=== PATIENT | female | born 1930 | race American Indian/Alaskan Native ===

== ENCOUNTER 2017-08-12 00:28 | Inpatient (IN) | payer MEDICARE, OTHER ==
[2017-08-12 00:30] VITALS: BMI 32.7
--- NOTE | 2017-08-12 00:45 | EDPD ---
HPI Stroke - General Time Seen by Provider: 08/12/17 00:33 Historian: Patient, Family (grandson), EMS - History of Present Illness Narrative History of Present Illness (Free Text): 08/12/17 00:45 87 year old female, whose past medical history includes hypertension, hyperlipidemia, and diabetes, presents to the emergency department for possible stroke. Acquired information from patient's grandson and EMS. Patient has general weakness and was found slumped over on her wheelchair at home. Family were unsure if patient had low blood sugar, so they gave her orange juice to drink. Acquired by EMS, patient has left upper arm weakness which now improved and is resolving. Patient is currently awake and verbal. Patient is also actively vomiting orange juice. Patient denies any fever, chills, chest pain, shortness of breath, nausea, diarrhea, urinary symptoms, back pain, neck pain, headache, dizziness, or any other complaints. Note patient is wheelchair bound. Onset:: Sudden Context: Home Associated Symptoms: Vomiting, other (Weakness, left arm weakness) rTPA Inclusion/Exclusion - Refusal of Treatment Patient Refused Treatment: No - Inclusion Criteria for Altepase Patient is 18 years or Older: Yes The Clinical Diagnosis of Ischemic Stroke That is Causing a Potentially Disabling Neurological Deficit: No Time of Onset is Well Established to be Less Than 270 Minute Before Treatment Would Begin: Yes Risk/Benefit Discussed With Patient/Family Member Present: Yes - Exclusion Criteria for Altepase Uncontrolled Hypertension at Time of Treatment (Systolic BP above 185 or Diastolic BP above 110 mmHg): No Active Internal Bleeding: No Known Bleeding Diathesis Including but Not Limited to: Platelets Below 100,000/ mm,PTT Above 40 sec After Heparin Use, Current Use of Oral Anitcoagulant With INR Greater Than 1.7 or PT Greater Than 15 secs: No Evidence of an Intracranial Hemorrhage: No Evidence of Major Acute Infarct With Signs Greater Than 1/3 MCA Territory: No Suspicion of Subarachnoid Hemorrhage on Pretreatment Evaluation Even if CT Head Negative For Hemorrhage: No - Warning to TPA With Conditions Following Conditions Weighed Against Anticipated Benefit: No Condition: Rapid Improvement Past Medical History - Provider Review Nursing Documentation Reviewed: Yes - Tetanus Immunization Tetanus Immunization: Unknown - Cardiac Hx Cardiac Arrhythmia: Yes Hx Hypertension: Yes - Pulmonary Hx Respiratory Disorders: (lung bx benign) - Musculoskeletal/Rheumatological Hx Arthritis: Yes (knees shoulders neck) - Psychiatric Hx Depression: No Hx Emotional Abuse: No Hx Physical Abuse: No - Surgical History Hx Appendectomy: Yes (pt was 36 yrs old) - Suicidal Assessment Feels Threatened In Home Enviroment: No Family/Social History - Dr. Kelly Nursing documentation reviewed.: Yes Allergies/Home Meds Allergies/Adverse Reactions: Allergies No Known Allergies Allergy (Verified 08/12/17 01:15) Home Medications: Home Meds Medication Instructions Recorded Confirmed Brinzolamide [Azopt 15 ml] 1 drop OP BID 01/08/13 08/12/17 Enalapril Maleate [Enalapril] 5 mg PO DAILY 01/08/13 08/12/17 Glimepiride 4 mg PO DAILY 01/08/13 08/12/17 Hydrochlorothiazide [Hydrochlor] 25 mg PO DAILY 01/08/13 08/12/17 Latanoprost [Latanoprost 2.5 ml] 1 drop OP HS 01/08/13 08/12/17 Meloxicam 15 mg PO DAILY 01/08/13 08/12/17 Pregabalin [Lyrica] 100 mg PO BID 01/08/13 08/12/17 Simvastatin 20 mg PO DAILY 01/08/13 08/12/17 Tramadol Hydrochloride [Tramadol] 50 mg PO BID 01/08/13 08/12/17 Insulin Human NPH [Humulin N] 0 units SUBCUT BID 08/12/17 08/12/17 Oxybutynin Chloride [Oxybutynin 10 mg PO DAILY 08/12/17 08/12/17 Chloride ER] Pantoprazole Sodium [Protonix] 40 mg PO DAILY 08/12/17 08/12/17 Review of Systems - Physician Review All systems were reviewed & negative as marked: Yes - Review of Systems Constitutional: absent: Fevers, Other (Chills) Respiratory: absent: SOB Cardiovascular: absent: Chest Pain Gastrointestinal: Vomiting. absent: Diarrhea, Nausea Genitourinary Female: absent: Dysuria, Frequency, Hematuria Musculoskeletal: Other (general weakness, upper arm weakness) Neurological: absent: Headache, Dizziness ED Stroke Physical Exam Temperature: Afebrile Blood Pressure: Normal Pulse: Regular Respiratory Rate: Normal Appearance: Positive for: Well-Appearing, Non-Toxic, Comfortable Pain Distress: None Mental Status: Positive for: Alert and Oriented X 3 - Systems Exam Head: Present: Atraumatic, Normocephalic Pupils: Present: PERRL Extroacular Muscles: Present: EOMI Conjunctiva: Present: Normal Ears: Present: NORMAL TM Mouth: Present: Moist Mucous Membranes Neck: Present: Normal Range of Motion Respiratory/Chest: Present: Clear to Auscultation, Good Air Exchange. No: Respiratory Distress, Accessory Muscle Use Cardiovascular: Present: Regular Rate and Rhythm, Normal S1, S2. No: Murmurs Abdomen: Present: Normal Bowel Sounds. No: Tenderness, Distention, Peritoneal Signs Genitourinary/Pelvic Exam: Present: NI. No: C, E Back: Present: GCS, CN, SP Upper Extremity: Present: Normal Inspection, Normal ROM, Neurovascularly Intact. No: Cyanosis, Edema Lower Extremity: Present: Normal Inspection, Neurovascularly Intact. No: Edema Neurologic: Present: GCS=15, CN II-XII Intact, Speech Normal, Motor Func Grossly Intact, Normal Sensory Function Skin: Present: Warm, Dry, Normal Color. No: Rashes Lymphatic: Present: OX3, NI, NC Psychiatric: Present: Alert, Oriented x 3, Normal Insight, Normal Concentration Medical Decision Making ED Course and Treatment: 08/12/17 00:45 Impression: 87 year old female presents for possible stroke associated with active vomiting. Differential Diagnosis included but are not limited to: TIA VS CVA VS Gastritis Plan: -- CT head -- EKG -- Labs -- Chest X-ray -- Aspirin -- Zofran Inj -- Reassess and disposition Progress Notes: EXAM: CT Head Without Intravenous Contrast Dictated and Authenticated by: Cindy Stoddard MD 08/12/2017 12:53 AM IMPRESSION: No CT evidence of acute intracranial abnormality. Chronic changes as above. Acute infarcts/early ischemic changes may not be detectable by this modality; MRI is more sensitive in detecting acute ischemia. 08/12/17 02:12 CXR Impression: As read by me, shows no acute processes EKG shows NSR at 96 BPM with first degree AV block, LAD, and RBBB. Interpreted by me. 08/12/17 03:25 Case had been discussed earlier with the neurologist . Patient not a candidate for TPA given low risk/rapid improvement.ASA had been given earlier. 08/12/17 03:[address] See and agrees with the plan. Accepts patient into his service and Dr. Pichardo on consult. - Lab Interpretations I have reviewed the lab results: Yes - RAD Interpretation Radiology Orders: 08/12/17 00:34 HEAD W/O (CODE STROKE) [CT] Stat CHEST PORTABLE [RAD] Stat - EKG Interpretation Interpreted by ED Physician: Yes Type: 12 lead EKG - Medication Orders Current Medication Orders: Discontinued Medications Ondansetron HCl (Zofran Inj) 4 mg IVP ONCE ONE Stop: 08/12/17 00:37 NIHSS Scale([place]) 2 Time Performed: 00:50 - How Severe is the Stoke Baseline Level of Consciousness: 0=Alert LOC to Questions: 0=Both comments correct LOC to commands: 0=Obeys both correctly Best Gaze: 0=Normal Visual: 0=No visual loss Facial: 0=Normal Motor Arm - Left: 0=No drift Motor Arm - Right: 0=No drift Motor Leg - Left: 0=No drift Motor Leg - Right: 0=No drift Limb Ataxia: 0=Absent Sensory: 0=Normal Best Language: 0=No aphasia Dysarthia: 0=Normal articulation Extinction & Inattention (Neglect): 0=Normal, no object Score: 0 Risk Level: No Stroke Risk - Scribe Statement The provider has reviewed the documentation as recorded by the Morgan Barbosa Provider Scribe Attestation: All medical record entries made by the Scribe were at my direction and personally dictated by me. I have reviewed the chart and agree that the record accurately reflects my personal performance of the history, physical exam, medical decision making, and the department course for this patient. I have also personally directed, reviewed, and agree with the discharge instructions and disposition. NIHSS Scale ([place]) Time Performed: 00:35 - How Severe is the Stoke Baseline Level of Consciousness: 0=Alert LOC to Questions: 0=Both comments correct LOC to commands: 0=Obeys both correctly Best Gaze: 0=Normal Visual: 0=No visual loss Facial: 0=Normal Motor Arm - Left: 1=Drift noted before 10 sec Motor Arm - Right: 1=Drift noted before 10 sec Motor Leg - Left: 0=No drift Motor Leg - Right: 0=No drift Limb Ataxia: 0=Absent Sensory: 0=Normal Best Language: 0=No aphasia Dysarthia: 0=Normal articulation Extinction & Inattention (Neglect): 0=Normal, no object Score: 2 Risk Level: Minor Stroke Risk Disposition/Present on Arrival - Present on Arrival Any Indicators Present on Arrival: No History of DVT/PE: No History of Uncontrolled Diabetes: No Urinary Catheter: No History of Decub. Ulcer: No History Surgical Site Infection Following: None - Disposition Have Diagnosis and Disposition been Completed?: Yes Diagnosis: TIA (transient ischemic attack) Disposition: HOSPITALIZED Disposition Time: 03:39 Patient Plan: Observation Patient Problems: Current Active Problems Problem Status Onset TIA (transient ischemic attack) Acute Condition: STABLE
--- NOTE | 2017-08-12 00:54 | CT ---
EXAM: CT Head Without Intravenous Contrast CLINICAL HISTORY: 87 years old, female; Signs and symptoms; Altered mental status/memory loss; Confusion or disorientation; Additional info: Code stroke TECHNIQUE: Axial computed tomography images of the head/brain without intravenous contrast. All CT scans at this facility use one or more dose reduction techniques, viz.: automated exposure control; ma/kV adjustment per patient size (including targeted exams where dose is matched to indication; i.e. head); or iterative reconstruction technique. COMPARISON: No relevant prior studies available. FINDINGS: Brain: Atrophy. Chronic small vessel ischemic changes. 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 Vascular calcification. No hemorrhage. No edema. Ventricles: No hydrocephalus. Bones: Skull is intact. Hyperostosis interna. Sinuses: No acute sinusitis. Mastoid air cells: No mastoid effusion. IMPRESSION: No CT evidence of acute intracranial abnormality. Chronic changes as above. Acute infarcts/early ischemic changes may not be detectable by this modality; MRI is more sensitive in detecting acute ischemia.
[2017-08-12 01:22] LABS: BASO # 0.04 K/mm3 (0.0-2.0); BASO % 0.3 % (0.0-3.0); EOS # 0.1 (0.0-0.7); EOS % 0.5 % (1.5-5.0); GRAN # 6.03 (1.4-6.5); GRAN % 52.5 % (50.0-68.0); HEMATOCRIT 46.8 % (36.0-48.0); LYMPH # 4.6 (1.2-3.4); LYMPH % 39.9 % (22.0-35.0); MEAN CELL VOLUME 80.6 fl (80.0-105.0); MEAN CORPUSCULAR HEMOGLOBIN 25.8 pg (25.0-35.0); MEAN CORPUSCULAR HGB CONC 32.1 g/dl (31.0-37.0); MEAN PLATELET VOLUME 11.1 fl (7.0-11.0); MONO # 0.8 (0.1-0.6); MONO % 6.8 % (1.0-6.0); RED CELL DISTRIBUTION WIDTH 15.2 % (11.5-14.5); WHITE BLOOD COUNT 11.5 10^3/ul (4.5-11.0)
[2017-08-12 01:26] LABS: ALB/GLOB RATIO 1.3 (1.1-1.8); BILIRUBIN,TOTAL 1.6 mg/dL (0.2-1.3); CALCIUM 9.4 mg/dL (8.4-10.5); TOTAL PROTEIN 7.6 g/dL (5.8-8.3)
[2017-08-12 01:37] LABS: TROPONIN I 0.05 ng/mL
[2017-08-12 01:44] LABS: INR 1.06 (0.93-1.08)
--- NOTE | 2017-08-12 11:27 | RAD ---
HISTORY: cva COMPARISON: 03/28/2014 FINDINGS: LUNGS: No active pulmonary disease. PLEURA: No significant pleural effusion identified, no pneumothorax apparent. Left costophrenic angle is excluded from this film. CARDIOVASCULAR: Normal heart size. Surgical clips adjacent to right hilum. OSSEOUS STRUCTURES: No significant abnormalities. VISUALIZED UPPER ABDOMEN: Normal. OTHER FINDINGS: None. IMPRESSION: No active disease.
--- NOTE | 2017-08-12 13:58 | CON ---
CHIEF COMPLAINT: Generalized weakness. HISTORY OF PRESENT ILLNESS: An 87-year-old woman with history of hypertension, hyperlipidemia and diabetes, not on aspirin, who came to the hospital with generalized weakness, found slumped over on the wheelchair after being carried up with her son and her nephew [facility]. The son was unsure if she had low blood sugars, they gave orange juice to drink. When she came, the EMS noted some left upper arm weakness, which has improved and resolved. TPA was not given due to resolving left arm weakness. Currently, she is moving all extremities. No pronator drift seen. She does have evidence of diabetic peripheral neuropathy on the examination and chronic venous stasis changes on the lower extremities. REVIEW OF SYSTEMS: A 14-point review of systems as per the HPI. FAMILY HISTORY: Noncontributory. SOCIAL HISTORY: No illicit drug use, smoking, or EtOH abuse. ALLERGIES: NO KNOWN DRUG ALLERGIES. MEDICATION: Reviewed by nurses per reconciliation sheet. PHYSICAL EXAMINATION: VITAL SIGNS: Temperature is 97.8, pulse rate of 92, blood pressure 124/71, respiratory rate of 16. GENERAL: The patient is sitting up in bed, in no acute distress. HEENT: Head is atraumatic and normocephalic. PERRLA. Extraocular muscles intact. NECK: Supple. No JVD. No adenopathy noted. LUNGS: Clear to auscultation. No adventitious sounds. HEART: S1 and S2, normal rate and rhythm. No murmurs, rubs, or gallops. ABDOMEN: Soft, nontender, nondistended. Bowel sounds are present. EXTREMITIES: No clubbing. No cyanosis. Peripheral pulses 2+ felt bilaterally. NEUROLOGIC: The patient is alert and oriented to person, place, month and year. Speech is fluent without any errors. Cranial nerves II through XII intact. Motor exam: Moves all extremities equally. Toes downgoing bilaterally. Sensory exam: Diffuse light touch to pinprick up to the calves bilaterally, decreased vibration at the toes. DTRs are 2+ throughout, 1 at the ankles and knees. Coordination: Zajgun-sx-laac intact. Gait is deferred for now. LABORATORY DATA: Sodium is 139, potassium 4, chloride 100, carbon dioxide 26, BUN of 30, creatinine 1.1, random glucose of 268. ASSESSMENT: This is an 87-year-old woman with history of hypertension, hyperlipidemia, type 2 diabetes mellitus, who was brought to the hospital, noticed to have generalized weakness, found slumped on the wheelchair after being carried up the flight of stairs after [facility] to her apartment, and EMS noted transient left upper arm weakness but currently which is not present at this time. Neuro exam is currently nonfocal. She does have features of diabetic peripheral neuropathy on the examination. At this time, her transient left-sided weakness and generalized weakness could be secondary to underlying transient ischemic event given her risk factors. RECOMMENDATIONS: At this time recommend; 1. Aspirin 81 mg daily. 2. Simvastatin 20 mg p.o. daily for dyslipidemia. 3. Avoid overuse of sedative meds such as tramadol and meloxicam that she is on. 4. Continue on Lyrica 100 mg p.o. b.i.d. for neuropathic pain given her diabetic neuropathy. 5. Keep blood sugars between 140 to 180. 6. Get an MRI of the brain given her risk factors to evaluate for an acute stroke and continue PT evaluation. Once again, thank you for this consult. Jose Pichardo MD
--- NOTE | 2017-08-12 14:44 | CP.PCM.HP ---
History of Present Illness - History of Present Illness History of Present Illness: 87 yo female had syncopal episode with some weakness of the left arm which resolved, glucose level elevated, no response from OJ given in field,, no witnessed SZ, c/o SOB occasionally, CARPENTER, mild non-radiating chest discomfort, slight increased edema of legs past few days Present on Admission - Present on Admission Any Indicators Present on Admission: No Review of Systems - Constitutional Constitutional: Malaise, Weakness - Cardiovascular Cardiovascular: Chest Pain with Activity, Dyspnea, Pedal Edema, Syncope - Respiratory Respiratory: Dyspnea on Exertion - Musculoskeletal Musculoskeletal: Abnormal Gait, Arthralgias, Limited Range of Motion, Muscle Weakness, Stiffness, Tingling - Neurological Neurological: Abnormal Gait, Numbness, Radicular Pain, Syncope, Weakness Past Patient History - Tetanus Immunizations Tetanus Immunization: Unknown - Past Social History Smoking Status: Never Smoked - CARDIAC Hx Cardiac Disorders: Yes Hx Hypercholesterolemia: Yes Hx Hypertension: Yes - PULMONARY Hx Respiratory Disorders: No - NEUROLOGICAL Hx Neurological Disorder: No - HEENT Hx HEENT Problems: Yes Hx Cataracts: Yes (left eye) Hx Glaucoma: Yes (right eye) - RENAL Hx Chronic Kidney Disease: No - ENDOCRINE/METABOLIC Hx Endocrine Disorders: Yes Hx Diabetes Mellitus Type 1: Yes Hx Diabetes Mellitus Type 2: Yes - HEMATOLOGICAL/ONCOLOGICAL Hx Blood Disorders: No - INTEGUMENTARY Hx Dermatological Problems: No - MUSCULOSKELETAL/RHEUMATOLOGICAL Hx Musculoskeletal Disorders: Yes Hx Arthritis: Yes Hx Falls: No - GASTROINTESTINAL Hx Gastrointestinal Disorders: No - GENITOURINARY/GYNECOLOGICAL Hx Genitourinary Disorders: No - PSYCHIATRIC Hx Psychophysiologic Disorder: No Hx Substance Use: No - SURGICAL HISTORY Hx Appendectomy: Yes (pt was 36 yrs old) - ANESTHESIA Hx Anesthesia: No Meds Allergies/Adverse Reactions: Allergies Allergy/AdvReac Type Severity Reaction Status Date / Time No Known Allergies Allergy Verified 08/12/17 01:15 Physical Exam - Constitutional Appears: No Acute Distress - Head Exam Head Exam: ATRAUMATIC, NORMOCEPHALIC - Eye Exam Eye Exam: EOMI, Normal appearance - ENT Exam ENT Exam: Mucous Membranes Moist - Neck Exam Neck exam: Positive for: Normal Inspection - Respiratory Exam Respiratory Exam: Rales - Cardiovascular Exam Cardiovascular Exam: REGULAR RHYTHM, Systolic Murmur - GI/Abdominal Exam GI & Abdominal Exam: Normal Bowel Sounds, Soft - Extremities Exam Extremities exam: Positive for: pedal edema - Neurological Exam Neurological exam: Abnormal Gait, Alert, Oriented x3 - Skin Skin Exam: Cyanosis, Dry Results - Vital Signs Recent Vital Signs: Last Vital Signs Temp 97.8 F 08/12/17 12:19 Pulse 92 H 08/12/17 12:19 Resp 16 08/12/17 12:19 BP 124/71 08/12/17 12:19 Pulse Ox 98 08/12/17 01:47 - Labs Result Diagrams: 08/12/17 01:00 08/12/17 01:00 Labs: Laboratory Results - last 24 hr 08/12/17 08/12/17 10:19 12:39 POC Glucose (mg/dL) 206 H 313 H Assessment & Plan (1) TIA (transient ischemic attack) Status: Acute (2) Cyanosis Status: Acute (3) Type II diabetes mellitus Status: Acute (4) Hypertension Status: Acute (5) Degenerative joint disease involving multiple joints Status: Acute (6) Immobility Status: Acute - Assessment and Plan (Free Text) Plan: neuro consult appreciated, cardio consult, repeat troponin, ABG, check d-dimer, venous doppler LE's, carotid US - Date & Time Date: 08/12/17 Time: 14:00
[2017-08-12 16:27] LABS: TROPONIN I 2.18 ng/mL
[2017-08-12] MEDS: Insulin Reg-LOW-Coverage SC SCH ×2 (16:30→21:46)
[2017-08-12 17:31] LABS: ARTERIAL BLOOD GAS HCO3 29.7 mmol/L (21-28); ARTERIAL BLOOD GAS O2 CAPACITY 17.3 mL/dl (16-24); ARTERIAL BLOOD GAS O2 CONTENT 17.1 ML/dl (15-23); CARBOXYHEMOGLOBIN 1.4 % (0.5-1.5); HHB 0.9 % (0-5); METHEMOGLOBIN 0.7 % (0.0-3.0)
[2017-08-12] MEDS: Clotrimazole/Betamethasone Cream(15 gm) TOP SCH (17:59)
[2017-08-12] MEDS: Enoxaparin 100 mg Syringe SC SCH (20:39)
[2017-08-13] MEDS: Pantoprazole 40 mg EC Tab PO SCH (05:15)
--- NOTE | 2017-08-13 08:31 | CARD ---
APPROVED REPORT EKG Measurement Heart [id number] ME 226P [id number] <Conclusion> Sinus rhythm with 1st degree AV block with premature atrial complexes ASMI, old Left axis deviation Right bundle branch block, new since ECG 03/28/14
[2017-08-13] MEDS: Insulin Reg-LOW-Coverage SC SCH ×4 (09:06→21:44)
[2017-08-13] MEDS: Enoxaparin 100 mg Syringe SC SCH (09:17)
[2017-08-13] MEDS: Clotrimazole/Betamethasone Cream(15 gm) TOP SCH ×2 (11:31→17:45)
--- NOTE | 2017-08-13 12:42 | CP.PCM.PN ---
Subjective - Date & Time of Evaluation Date of Evaluation: 08/13/17 Time of Evaluation: 12:25 - Subjective Subjective: feels better, no cp, no SOB Objective - Vital Signs/Intake and Output Vital Signs (last 24 hours): Temp Pulse Resp BP Pulse Ox 99.2 F 68 20 138/73 99 08/13/17 06:00 08/13/17 11:28 08/13/17 06:00 08/13/17 11:28 08/13/17 06:00 Intake and Output: 08/13/17 08/13/17 06:59 18:59 Intake Total 0 Output Total 400 Balance -400 - Medications Medications: Current Medications Aspirin (Aspirin Chewable) 81 mg PO DAILY [facility] Last Admin: 08/13/17 11:30 Dose: 81 mg Betamethasone/Clotrimazole (Lotrisone) 1 gm TOP BID [facility] Last Admin: 08/13/17 11:31 Dose: 1 applic Clopidogrel Bisulfate (Plavix) 75 mg PO ONCE ONE Stop: 08/14/17 10:01 Insulin Human Regular (Humulin R Low) 0 units SC ACHS [facility] PRN Reason: Protocol Last Admin: 08/13/17 11:30 Dose: 2 units Lisinopril (Zestril) 5 mg PO DAILY [facility] Last Admin: 08/13/17 11:28 Dose: 5 mg Metoprolol Tartrate (Lopressor) 25 mg PO BRKDIN [facility] Last Admin: 08/13/17 09:09 Dose: 25 mg Pantoprazole Sodium (Protonix Ec Tab) 40 mg PO 0600 [facility] Last Admin: 08/13/17 05:15 Dose: 40 mg Tramadol HCl (Ultram) 50 mg PO TID PRN PRN Reason: Pain, moderate (4-7) - Labs Labs: PT 11.5 Seconds (9.9-11.8) 08/12/17 01:00 INR 1.06 (0.93-1.08) 08/12/17 01:00 APTT 27.0 Seconds (23.7-30.8) 08/12/17 01:00 - Respiratory Exam Respiratory Exam: Clear to Ausculation Bilateral, NORMAL BREATHING PATTERN - Cardiovascular Exam Cardiovascular Exam: REGULAR RHYTHM - GI/Abdominal Exam GI & Abdominal Exam: Soft, Normal Bowel Sounds - Back Exam Back Exam: NORMAL INSPECTION - Neurological Exam Neurological Exam: Alert, Awake - Skin Skin Exam: Dry, Warm Assessment and Plan (1) TIA (transient ischemic attack) Status: Acute (2) Cyanosis Status: Acute (3) Type II diabetes mellitus Status: Acute (4) Hypertension Status: Acute (5) Degenerative joint disease involving multiple joints Status: Acute (6) Immobility Status: Acute (7) NSTEMI (non-ST elevated myocardial infarction) Status: Acute - Assessment and Plan (Free Text) Plan: cardiology eval, ?cath
--- NOTE | 2017-08-13 14:30 | CON ---
DATE: 08/13/2017 CARDIOLOGY CONSULTATION HISTORY OF PRESENT ILLNESS: The patient is an 87-year-old woman who presents with generalized weakness. The patient's past medical history includes hypertension, diabetes mellitus, and hypercholesterolemia. No previous heart disease is noted. There is no history of chest pain. SOCIAL HISTORY: The patient does not smoke. REVIEW OF SYSTEMS: A 14-point review of systems was reviewed in detail. The patient is comfortable without shortness breath or chest pain. PHYSICAL EXAMINATION: VITAL SIGNS: Stable, heart rate is in normal sinus rhythm in the 80s. NECK: Negative JVD. LUNGS: Without rales. HEART: S1, S2. EXTREMITIES: Without edema. EKG shows normal sinus rhythm with a right bundle-branch block. Troponins were 2.18. Creatinine is normal. IMPRESSION: 1. Pvo-AN-couussstd myocardial infarction. 2. High probability for coronary artery disease. 3. Diabetes mellitus. 4. Hypertension. 5. Hypercholesterolemia. Given these findings, the patient has been started on Lovenox, aspirin, beta-blockers. We will load with Plavix today. I have discussed with the patient about the need for cardiac catheterization. We will schedule the case for cardiac catheterization with Dr. Cloud in the morning. Adam Abdi MD
[2017-08-14] MEDS: Pantoprazole 40 mg EC Tab PO SCH (06:06)
[2017-08-14 07:49] LABS: BASO # 0.03 K/mm3 (0.0-2.0); BASO % 0.3 % (0.0-3.0); EOS % 0.4 % (1.5-5.0); GRAN # 5.93 (1.4-6.5); GRAN % 66.3 % (50.0-68.0); LYMPH # 1.8 (1.2-3.4); LYMPH % 19.7 % (22.0-35.0); MEAN CELL VOLUME 79.6 fl (80.0-105.0); MEAN CORPUSCULAR HEMOGLOBIN 25.7 pg (25.0-35.0); MEAN CORPUSCULAR HGB CONC 32.3 g/dl (31.0-37.0); MEAN PLATELET VOLUME 10.4 fl (7.0-11.0); MONO # 1.2 (0.1-0.6); MONO % 13.3 % (1.0-6.0)
[2017-08-14 08:04] LABS: BLOOD UREA NITROGEN 20 mg/dL (7-21); CALCIUM 9.4 mg/dL (8.4-10.5); CARBON DIOXIDE 31 mmol/L (21-33); CHLORIDE 103 mmol/L (98-107); GFR AFRICAN-AMERICAN > 60; GLUCOSE,RANDOM 149 mg/dL (70-110); POTASSIUM 4.1 mmol/L (3.6-5.0); SODIUM 142 mmol/L (132-148)
[2017-08-14] MEDS: Insulin Reg-LOW-Coverage SC SCH ×5 (08:07→21:15)
[2017-08-14 08:25] LABS: TROPONIN I 0.37 ng/mL
--- NOTE | 2017-08-14 09:16 | US ---
HISTORY: Leg pain and swelling. Evaluate for DVT PHYSICIAN(S): Adam Kurtz MD. TECHNIQUE: Duplex sonography and color-flow Doppler with graded compression were used to evaluate the deep venous systems of both lower extremities. The exam is limited by body habitus and edema. The tibial veins are not well seen FINDINGS: The visualized deep venous systems of both lower extremities are sonographically normal and compressible. Normal wave forms and augmentation are seen. There is no sonographic evidence for deep venous thrombosis in the visualized segments of both lower extremities. IMPRESSION: No sonographic evidence for deep venous thrombosis in the visualized segments of both lower extremities.
--- NOTE | 2017-08-14 09:39 | CP.PCM.PN ---
Subjective - Date & Time of Evaluation Date of Evaluation: 08/14/17 Time of Evaluation: 09:30 - Subjective Subjective: NAD, no cp, no sob Objective - Vital Signs/Intake and Output Vital Signs (last 24 hours): Temp Pulse Resp BP Pulse Ox 98.8 F 73 20 146/75 95 08/14/17 05:38 08/14/17 09:25 08/14/17 05:38 08/14/17 09:25 08/14/17 05:38 Intake and Output: 08/14/17 08/14/17 06:59 18:59 Intake Total 0 Output Total 0 Balance 0 - Medications Medications: Current Medications Acetaminophen (Tylenol 325mg Tab) 650 mg PO Q4H PRN PRN Reason: Fever >100.4 F Last Admin: 08/14/17 08:20 Dose: 650 mg Aspirin (Aspirin Chewable) 81 mg PO DAILY [facility] Last Admin: 08/14/17 09:25 Dose: 81 mg Betamethasone/Clotrimazole (Lotrisone) 1 gm TOP BID [facility] Last Admin: 08/13/17 17:45 Dose: 1 applic Clopidogrel Bisulfate (Plavix) 75 mg PO ONCE ONE Stop: 08/14/17 10:01 Last Admin: 08/14/17 09:25 Dose: 75 mg Insulin Human Regular (Humulin R Low) 0 units SC ACHS [facility] PRN Reason: Protocol Last Admin: 08/14/17 08:07 Dose: Not Given Lisinopril (Zestril) 5 mg PO DAILY [facility] Last Admin: 08/14/17 09:25 Dose: 5 mg Metoprolol Tartrate (Lopressor) 25 mg PO BRKDIN [facility] Last Admin: 08/14/17 08:20 Dose: 25 mg Pantoprazole Sodium (Protonix Ec Tab) 40 mg PO 0600 [facility] Last Admin: 08/14/17 06:06 Dose: 40 mg Tramadol HCl (Ultram) 50 mg PO TID PRN PRN Reason: Pain, moderate (4-7) - Labs Labs: 08/14/17 07:30 08/14/17 07:30 PT 11.5 Seconds (9.9-11.8) 08/12/17 01:00 INR 1.06 (0.93-1.08) 08/12/17 01:00 APTT 27.0 Seconds (23.7-30.8) 08/12/17 01:00 - Respiratory Exam Respiratory Exam: Clear to Ausculation Bilateral, NORMAL BREATHING PATTERN - Cardiovascular Exam Cardiovascular Exam: REGULAR RHYTHM - GI/Abdominal Exam GI & Abdominal Exam: Soft, Normal Bowel Sounds - Neurological Exam Neurological Exam: Alert, Awake - Skin Skin Exam: Dry, Warm Assessment and Plan (1) TIA (transient ischemic attack) Status: Acute (2) Cyanosis Status: Acute (3) Type II diabetes mellitus Status: Acute (4) Hypertension Status: Acute (5) Degenerative joint disease involving multiple joints Status: Acute (6) Immobility Status: Acute (7) NSTEMI (non-ST elevated myocardial infarction) Status: Acute - Assessment and Plan (Free Text) Plan: for cath, cardio and neuro f/u, pt unable to do MRI brain due to claustrophobia
[2017-08-14] MEDS: Clotrimazole/Betamethasone Cream(15 gm) TOP SCH ×2 (10:00→17:59)
--- NOTE | 2017-08-14 10:22 | CP.PCM.PN ---
<Kristin Rojo - Last Filed: 08/14/17 13:09> Subjective - Date & Time of Evaluation Date of Evaluation: 08/14/17 Time of Evaluation: 10:16 - Subjective Subjective: Neurology Progress Note for Yamila Jay PGY2 Patient seen and examined at bedside. As per nursing there were no acute overnight events. Patient is scheduled for cardiac cath this AM. She reports having some shoulder pain that is relieved with Tylenol. She denies any weakness , vision changes, slurred speech, dizziness, headache, CP, SOB, n/v/d, numbness or tingling. Objective - Vital Signs/Intake and Output Vital Signs (last 24 hours): Temp Pulse Resp BP Pulse Ox 98.8 F 73 20 146/75 95 08/14/17 05:38 08/14/17 09:25 08/14/17 05:38 08/14/17 09:25 08/14/17 05:38 Intake and Output: 08/14/17 08/14/17 06:59 18:59 Intake Total 0 Output Total 0 Balance 0 - Medications Medications: Current Medications Acetaminophen (Tylenol 325mg Tab) 650 mg PO Q4H PRN PRN Reason: Fever >100.4 F Last Admin: 08/14/17 08:20 Dose: 650 mg Aspirin (Aspirin Chewable) 81 mg PO DAILY [facility] Last Admin: 08/14/17 09:25 Dose: 81 mg Betamethasone/Clotrimazole (Lotrisone) 1 gm TOP BID [facility] Last Admin: 08/13/17 17:45 Dose: 1 applic Insulin Human Regular (Humulin R Low) 0 units SC ACHS [facility] PRN Reason: Protocol Last Admin: 08/14/17 08:07 Dose: Not Given Lisinopril (Zestril) 5 mg PO DAILY [facility] Last Admin: 08/14/17 09:25 Dose: 5 mg Metoprolol Tartrate (Lopressor) 25 mg PO BRKDIN [facility] Last Admin: 08/14/17 08:20 Dose: 25 mg Pantoprazole Sodium (Protonix Ec Tab) 40 mg PO 0600 [facility] Last Admin: 08/14/17 06:06 Dose: 40 mg Tramadol HCl (Ultram) 50 mg PO TID PRN PRN Reason: Pain, moderate (4-7) - Labs Labs: 08/14/17 07:30 08/14/17 07:30 PT 11.5 Seconds (9.9-11.8) 08/12/17 01:00 INR 1.06 (0.93-1.08) 08/12/17 01:00 APTT 27.0 Seconds (23.7-30.8) 08/12/17 01:00 - Constitutional Appears: No Acute Distress - Head Exam Head Exam: ATRAUMATIC, NORMAL INSPECTION, NORMOCEPHALIC - Eye Exam Eye Exam: Normal appearance, PERRL Pupil Exam: NORMAL ACCOMODATION, PERRL - ENT Exam ENT Exam: Mucous Membranes Moist - Neck Exam Neck Exam: Full ROM - Respiratory Exam Respiratory Exam: Clear to Ausculation Bilateral, NORMAL BREATHING PATTERN. absent: Rales, Rhonchi, Wheezes - Cardiovascular Exam Cardiovascular Exam: REGULAR RHYTHM, +S1, +S2. absent: Gallop, Rubs, Murmur - GI/Abdominal Exam GI & Abdominal Exam: Soft, Normal Bowel Sounds. absent: Rigid, Tenderness, Mass , Rebound - Extremities Exam Extremities Exam: Normal Inspection. absent: Calf Tenderness, Pedal Edema - Neurological Exam Neurological Exam: Alert, Awake, CN II-XII Intact, Oriented x3 - Psychiatric Exam Psychiatric exam: Normal Affect, Normal Mood - Skin Skin Exam: Dry, Intact, Warm Additional comments: discoloration of shins bilaterally Assessment and Plan - Assessment and Plan (Free Text) Assessment: This is an 87Y F with PMH DM, HTN, HLD who was admitted for generalized weakness. EMS noted L arm weakness at the time. Upon examination she does not have any focal neurological deficits. Head CT did not show any acute abnormalities. Due to patient's risk factors, weakness could be secondary to TIA. Patient was also noted to have NSTEMI with elevated troponin. She is scheduled for cardiac cath today. Plan: - Continue ASA and Plavix - Carotid dopplers ordered - Continue Lyrica for diabetic nephropathy - Continue Physical Therapy - Maintain euglycemia - Avoid overuse of sedative medications (Tramadol and Meloxicam) - Follow up cardiology work up Case seen, discussed and reviewed with attending, Dr. Kylee Rojo PGY2 <Jose Pichardo - Last Filed: 08/14/17 13:15> Objective - Vital Signs/Intake and Output Vital Signs (last 24 hours): Temp Pulse Resp BP Pulse Ox 98.8 F 104 H 20 146/75 95 08/14/17 05:38 08/14/17 10:00 08/14/17 05:38 08/14/17 09:25 08/14/17 05:38 Intake and Output: 08/14/17 08/14/17 06:59 18:59 Intake Total 0 Output Total 0 Balance 0 - Medications Medications: Current Medications Acetaminophen (Tylenol 325mg Tab) 650 mg PO Q4H PRN PRN Reason: Fever >100.4 F Last Admin: 08/14/17 08:20 Dose: 650 mg Aspirin (Aspirin Chewable) 81 mg PO DAILY [facility] Last Admin: 08/14/17 09:25 Dose: 81 mg Betamethasone/Clotrimazole (Lotrisone) 1 gm TOP BID [facility] Last Admin: 08/13/17 17:45 Dose: 1 applic Insulin Human Regular (Humulin R Low) 0 units SC ACHS [facility] PRN Reason: Protocol Last Admin: 08/14/17 08:07 Dose: Not Given Lisinopril (Zestril) 5 mg PO DAILY [facility] Last Admin: 08/14/17 09:25 Dose: 5 mg Metoprolol Tartrate (Lopressor) 25 mg PO BRKDIN [facility] Last Admin: 08/14/17 08:20 Dose: 25 mg Pantoprazole Sodium (Protonix Ec Tab) 40 mg PO 0600 [facility] Last Admin: 08/14/17 06:06 Dose: 40 mg Tramadol HCl (Ultram) 50 mg PO TID PRN PRN Reason: Pain, moderate (4-7) - Labs Labs: 08/14/17 07:30 08/14/17 07:30 PT 11.5 Seconds (9.9-11.8) 08/12/17 01:00 INR 1.06 (0.93-1.08) 08/12/17 01:00 APTT 27.0 Seconds (23.7-30.8) 08/12/17 01:00 Attending/Attestation - Attestation I have personally seen and examined this patient.: Yes I have fully participated in the care of the patient.: Yes I have reviewed all pertinent clinical information, including history, physical exam and plan: Yes
--- NOTE | 2017-08-14 10:59 | US ---
PROCEDURE: Bilateral carotid artery duplex ultrasound HISTORY: Carotid stenosis TIA PHYSICIAN(S): Adam Kurtz MD. TECHNIQUE: Duplex sonography and color-flow Doppler were used to evaluate the carotid bifurcations and limited segments of the vertebral arteries bilaterally. FINDINGS: There is mild smooth echogenic plaque noted at the carotid bifurcations bilaterally. The peak systolic velocity in the proximal right internal carotid artery is 70 cm/sec. This corresponds to a 20 to 39% proximal right ICA stenosis. Normal systolic velocities are noted in the proximal right external carotid artery. There is antegrade flow in the right vertebral artery. The peak systolic velocity in the proximal left internal carotid artery is 68 cm/sec. This corresponds to a 20 to 39% proximal left ICA stenosis. Normal systolic velocities are noted in the proximal left external carotid artery. There is antegrade flow in the left vertebral artery. IMPRESSION: 1. Bilateral 20-39% proximal ICA stenoses. 2. Antegrade flow in both vertebral arteries.
[2017-08-14] MEDS ORDERED: Lidocaine 2% Inj (20ml) ONE (13:57)
[2017-08-14] MEDS ORDERED: Midazolam 2 MG/2 ML VIAL ONE (13:58)
[2017-08-14] MEDS ORDERED: Iodixanol 320 MG/ML 200 ML BOTTLE IV ONE (13:58)
[2017-08-14] MEDS ORDERED: Iohexol 350mgl/ml 50 ML ONE (13:58)
[2017-08-14] MEDS ORDERED: Eptifibatide 20 mg/10mL Inj IVP ONE ×2 (14:54→14:55)
[2017-08-14] MEDS ORDERED: Sodium Chloride 0.9% 1,000 ML IV SCH (16:15)
--- NOTE | 2017-08-14 19:39 | CP.PCM.PN ---
Subjective - Date & Time of Evaluation Date of Evaluation: 08/14/17 Time of Evaluation: 19:38 - Subjective Subjective: S:Patient was seen by bedside. Requests stool softner. No other complaints. Medical record was reviewed. O: Last Vital Signs 3 Temp 98.3 F 08/14/17 21:45 Pulse 56 L 08/14/17 22:00 Resp 18 08/14/17 21:45 BP 124/75 08/14/17 21:45 Pulse Ox 95 08/14/17 05:38 Awake, alert,not in distress. LUNGS:Normal breathing pattern. ABD:No distension. A:Constipation. P: Stool softner colace as ordered. Objective - Vital Signs/Intake and Output Vital Signs (last 24 hours): Temp Pulse Resp BP Pulse Ox 97.6 F 61 18 106/56 L 95 08/14/17 18:45 08/14/17 18:45 08/14/17 18:45 08/14/17 18:45 08/14/17 05:38 - Medications Medications: Current Medications Acetaminophen (Tylenol 325mg Tab) 650 mg PO Q4H PRN PRN Reason: Fever >100.4 F Last Admin: 08/14/17 08:20 Dose: 650 mg Aspirin (Aspirin Chewable) 81 mg PO DAILY [facility] Last Admin: 08/14/17 09:25 Dose: 81 mg Atorvastatin Calcium (Lipitor) 20 mg PO DIN [facility] Last Admin: 08/14/17 17:59 Dose: 20 mg Betamethasone/Clotrimazole (Lotrisone) 1 gm TOP BID [facility] Last Admin: 08/14/17 17:59 Dose: 1 applic Sodium Chloride (Sodium Chloride 0.9%) 1,000 mls @ 100 mls/hr IV .Q10H [facility] Stop: 08/14/17 21:00 Last Admin: 08/14/17 18:29 Dose: 100 mls/hr Insulin Human Regular (Humulin R Low) 0 units SC ACHS [facility] PRN Reason: Protocol Last Admin: 08/14/17 18:02 Dose: 1 units Isosorbide Mononitrate (Imdur Er) 30 mg PO DAILY [facility] Lisinopril (Zestril) 5 mg PO DAILY [facility] Last Admin: 08/14/17 09:25 Dose: 5 mg Metoprolol Tartrate (Lopressor) 25 mg PO BRKDIN [facility] Last Admin: 08/14/17 17:20 Dose: Not Given Pantoprazole Sodium (Protonix Ec Tab) 40 mg PO 0600 [facility] Last Admin: 08/14/17 06:06 Dose: 40 mg Tramadol HCl (Ultram) 50 mg PO TID PRN PRN Reason: Pain, moderate (4-7) - Labs Labs: 08/14/17 19:00 08/14/17 07:30 PT 11.5 Seconds (9.9-11.8) 08/12/17 01:00 INR 1.06 (0.93-1.08) 08/12/17 01:00 APTT 27.0 Seconds (23.7-30.8) 08/12/17 01:00
--- NOTE | 2017-08-14 20:22 | PN ---
REASON FOR CONSULTATION: Followup ST segment myocardial infarction status post PTCA of RCA. SUBJECTIVE: The patient denies any chest pain post-procedure lying flat on the bed with family members. OBJECTIVE: GENERAL: Lying flat on the bed. VITAL SIGNS: Temperature afebrile, heart rate 73, and blood pressure 146/75. HEENT: PERRLA. Extraocular muscles intact. NECK: Supple. No carotid bruits or thyromegaly. CHEST: Clear to auscultation. HEART: S1 and S2 regular. ABDOMEN: Soft. EXTREMITIES: Clubbing and cyanosis negative. LABORATORY DATA: Blood workup as follows: WBC is 9, hemoglobin 13.9, hematocrit 43.0, platelet count 178. Chemistry shows sodium 140, potassium 4.0, chloride 103, carbon dioxide 30, anion gap 4, BUN 20, creatinine 0.8. Troponin 0.37. IMPRESSION: Non ST segment myocardial infarction, hypertension, hyperlipidemia, arthritis status post percutaneous transluminal coronary angioplasty and stent of the right coronary artery with resultant 90% stenosis to 0. The patient had 70% to 80% LAD stenosis and 80% circumflex stenosis, will be done in 4 weeks on 09/11 at 7:30. Discussed with the grandson, granddaughter and daughter. We will follow her with you. Thank you Dr. See for the opportunity in taking care of patient. In the interim, continue aspirin, Plavix, 1 year preferably extended period of time, also we will put Lopressor, metoprolol twice, continue lisinopril and we will put low dose atorvastatin. I will follow her with you. Tyrell Cloud MD
[2017-08-14 20:41] LABS: BLOOD UREA NITROGEN 17 mg/dL (7-21); CALCIUM 8.7 mg/dL (8.4-10.5); CARBON DIOXIDE 29 mmol/L (21-33); CHLORIDE 103 mmol/L (98-107); GFR AFRICAN-AMERICAN > 60; GLUCOSE,RANDOM 215 mg/dL (70-110); POTASSIUM 3.8 mmol/L (3.6-5.0); SODIUM 140 mmol/L (132-148)
[2017-08-14 20:50] LABS: BASO # 0.03 K/mm3 (0.0-2.0); BASO % 0.4 % (0.0-3.0); EOS % 0.1 % (1.5-5.0); GRAN # 5.36 (1.4-6.5); GRAN % 69.4 % (50.0-68.0); HEMATOCRIT 41.8 % (36.0-48.0); LYMPH # 1.5 (1.2-3.4); LYMPH % 19.3 % (22.0-35.0); MEAN CELL VOLUME 80.1 fl (80.0-105.0); MEAN CORPUSCULAR HEMOGLOBIN 25.9 pg (25.0-35.0); MEAN CORPUSCULAR HGB CONC 32.3 g/dl (31.0-37.0); MEAN PLATELET VOLUME 10.4 fl (7.0-11.0); MONO # 0.8 (0.1-0.6); MONO % 10.8 % (1.0-6.0); RED CELL DISTRIBUTION WIDTH 15.1 % (11.5-14.5); WHITE BLOOD COUNT 7.7 10^3/ul (4.5-11.0)
[2017-08-14] MEDS ORDERED: Bacitracin 500 Units/gm Oint Foilpak UD ONE (20:50)
--- NOTE | 2017-08-14 21:27 | CARD ---
APPROVED REPORT Procedure(s) performed: Left Heart Catheterization PTCA with Stenting of Distal RCA with TIFFANY HISTORY The patient is a 87 year-old female with a history of : diabetes mellitus with insulin treatment , hypertension , dyslipidemia , cerebrovascular disease , Admitted with ACS/ NSTEMI troponin 2.38. INDICATION The indication(s) include : unstable angina , non-STEMI . CASE TECHNIQUE The patient was brought urgently to the Cardiac Catheterization Laboratory in a fasting state and was prepped and draped in a sterile manner. The left wrist was infiltrated with 2% Lidocaine subcutaneous anesthesia. A 6 Fr Glidesheath (Radial) sheath was inserted into the left radial artery without difficulty. Coronary angiography was performed using coronary diagnostic catheters. The left coronary system was accessed and visualized with a Diagnostic ,5 Fr JL 4 catheter. The right coronary system was accessed and visualized with a Diagnostic ,5 Fr JR 3.5 catheter. The left ventricle was accessed and visualized with a 5 Fr Pigtail 145 (Angled) catheter. Left ventricular/Aortic Valve gradient assessed on pullback. Left ventriculogram was performed in KAY projection. The patient tolerated the procedure well and there were no complications associated with the procedure. Vessel Analysis The patient's coronary anatomy is right dominant. The left main coronary artery is a medium size vessel with diffuse calcification noted throughout this vessel and without significant stenosis. The left main bifurcates to the left anterior descending and circumflex. The left anterior descending artery is a medium size vessel with diffuse calcification noted throughout this vessel and without significant stenosis. There is a 70-80% stenosis in the mid segment. The first diagonal branch is a small size vessel with diffuse calcification noted throughout this vessel and without significant stenosis. The second diagonal branch is a small size vessel with diffuse calcification noted throughout this vessel and without significant stenosis. The circumflex artery is a medium size vessel with diffuse calcification noted throughout this vessel and without significant stenosis. There is a 80% stenosis in the mid segment. The first obtuse marginal branch is a medium size vessel with diffuse calcification noted throughout this vessel and without significant stenosis. The right coronary artery is a large size vessel with diffuse calcification noted throughout this vessel and with significant stenosis. There is a 90% stenosis in the distal segment. with ulceratedplaque The right posterior descending artery is a medium size vessel with diffuse calcification noted throughout this vessel and without significant stenosis. The right posterolateral branch is a medium size vessel with diffuse calcification noted throughout this vessel and without significant stenosis. Left Ventricle LV gram colud not be obtained, as pt went into SVT after crossing LV so Pig tail catheter was pulled from LV. after that multiple attempt was made but unable to cross LV b/c of tortousity of left subclavian artery. PCI Technique Lesion Anticoagulation was achieved with Heparin. Percutaneous coronary intervention was performed on the Distal right coronary artery. The lesion stenosis prior to intervention was 90% with SHALA 2 flow. A 6 Fr JR 3.5 Guide Catheter was used to engage the ostium. A 0.014 x 182 cm Luge Interventional Guidewire was used to cross the lesion. BALLOON DILATION A Balloon catheter 2.0 x 10 mm Sprinter RX was inserted and inflated up to 12.00atm for 26seconds. STENT DEPLOYMENT A drug-eluting stent 3.0 x 12 mm Resolute TIFFANY was inserted and inflated up to nathan for seconds. TIFFANY could not be delivered even with help of body wire, so guideliner used POST STENT DEPLOYMENT BALLOON DILATION A Balloon catheter 3.25 x 8 mm Trek RX NC was inserted and inflated up to 14.00atm for 23seconds. Final angiography reveals 0 % stenosis with SHALA 3 flow. Conclusion Ttriple Vessel disease Distal RCA thought to be culprit for NSTEMI ( Ulcerated Plaque) Successful PTCA of Distal RCA with TIFFANY LV gram could not be obtained after multiple attempt as above. Recommendations Cardiac Rehabilitation ReferralDaily ASA with Plavix for at least one year Aggressive Medical TherapyCardiac Risk Reduction Program Weight Loss Reduction Program Echo to assess LV FX and Valvular Fx Staged PTCA of LAD and Circumflex in four weeks 09/11/2017 at 7:30 am Cc; drs. See / Anjel.
[2017-08-15] MEDS: Pantoprazole 40 mg EC Tab PO SCH (05:53)
[2017-08-15 06:20] LABS: BASO # 0.03 K/mm3 (0.0-2.0); BASO % 0.4 % (0.0-3.0); EOS % 0.4 % (1.5-5.0); GRAN # 5.05 (1.4-6.5); HEMATOCRIT 41.5 % (36.0-48.0); LYMPH # 1.4 (1.2-3.4); LYMPH % 18.7 % (22.0-35.0); MEAN CELL VOLUME 79.8 fl (80.0-105.0); MEAN CORPUSCULAR HEMOGLOBIN 25.4 pg (25.0-35.0); MEAN CORPUSCULAR HGB CONC 31.8 g/dl (31.0-37.0); MEAN PLATELET VOLUME 10.6 fl (7.0-11.0); MONO # 0.8 (0.1-0.6); MONO % 10.5 % (1.0-6.0); RED CELL DISTRIBUTION WIDTH 15.1 % (11.5-14.5); WHITE BLOOD COUNT 7.2 10^3/ul (4.5-11.0)
[2017-08-15 07:56] LABS: ALB/GLOB RATIO 1.1 (1.1-1.8); ALKALINE PHOSPHATASE 61 U/L (38-126); ALT/SGPT 29 U/L (7-56); AST/SGOT 42 U/L (14-36); BILIRUBIN,TOTAL 1.7 mg/dL (0.2-1.3); BLOOD UREA NITROGEN 17 mg/dL (7-21); CALCIUM 8.8 mg/dL (8.4-10.5); CARBON DIOXIDE 29 mmol/L (21-33); CHLORIDE 104 mmol/L (98-107); GFR AFRICAN-AMERICAN > 60; GLUCOSE,RANDOM 169 mg/dL (70-110); MAGNESIUM 1.7 mg/dL (1.7-2.2); PHOSPHOROUS 2.7 mg/dL (2.5-4.5); POTASSIUM 3.9 mmol/L (3.6-5.0); SODIUM 142 mmol/L (132-148); TOTAL PROTEIN 6.8 g/dL (5.8-8.3)
[2017-08-15] MEDS: Insulin Reg-LOW-Coverage SC SCH ×4 (08:12→22:10)
--- NOTE | 2017-08-15 08:47 | IP.NPCORE ---
Acute [place] Core Measure PNote - LVF prior to this hospilization,if known LVF prior to this hospilization: Definitive Plan/Date - Source Source: Echo - Medications Aspirin Name/Dose/Frequency:: asa 81mg Beta Ambika prescribed: Name/dose/frequency: lopressor 25 bid ROSSY or ARB: Name/dose/frequency: zestril 5mg Lipid Lowering Agent: Name/Dose/Frequency: lipitor 20mg LDL:: 81 Date of test:: 08/14/17
--- NOTE | 2017-08-15 09:44 | CARD ---
APPROVED REPORT EKG Measurement Heart [id number] <Conclusion> Ectopic Atrial rhythm with premature atrial complexes Anterior infarct, age undetermined T wave abnormality, consider inferolateral ischemia Abnormal ECG
--- NOTE | 2017-08-15 10:22 | CP.PCM.PN ---
<Kristin Rojo - Last Filed: 08/15/17 10:19> Subjective - Date & Time of Evaluation Date of Evaluation: 08/15/17 Time of Evaluation: 10:19 - Subjective Subjective: Neurology Progress Note for Yamila Jay PGY2 Patient seen and examined at bedside. As per nursing, there were no acute overnight events. Patient had cardiac cath yesterday with stent in RCA. Patient is resting comfortably in bed. She denies CP, SOB, n/v/d, numbness/tingling, weakness, fever or chills. Objective - Vital Signs/Intake and Output Vital Signs (last 24 hours): Temp Pulse Resp BP Pulse Ox 98.8 F 70 20 144/73 98 08/15/17 05:05 08/15/17 08:12 08/15/17 05:05 08/15/17 08:12 08/15/17 05:05 Intake and Output: 08/15/17 08/15/17 06:59 18:59 Intake Total 1260 Output Total 350 Balance 910 - Medications Medications: Current Medications Acetaminophen (Tylenol 325mg Tab) 650 mg PO Q4H PRN PRN Reason: Fever >100.4 F Last Admin: 08/15/17 05:53 Dose: 650 mg Aspirin (Aspirin Chewable) 81 mg PO DAILY COUNT [facility]CLUDES [facility] Last Admin: 08/14/17 09:25 Dose: 81 mg Atorvastatin Calcium (Lipitor) 20 mg PO DIN COUNT INCLUDES [facility] Last Admin: 08/14/17 17:59 Dose: 20 mg Betamethasone/Clotrimazole (Lotrisone) 1 gm TOP BID COUNT INCLUDES [facility] Last Admin: 08/14/17 17:59 Dose: 1 applic Clopidogrel Bisulfate (Plavix) 75 mg PO DAILY COUNT [facility]CLUD[facility] Docusate Sodium (Colace) 100 mg PO TID COUNT INCLUDES [facility] Insulin Human Regular (Humulin R Low) 0 units SC ACHS COUNT INCLUDES THE [facility] PRN Reason: Protocol Last Admin: 08/15/17 08:12 Dose: 1 units Isosorbide Mononitrate (Imdur Er) 30 mg PO DAILY COUNT [facility]CLUDES [facility] Lisinopril (Zestril) 5 mg PO DAILY [facility]CLUD[facility] Last Admin: 08/14/17 09:25 Dose: 5 mg Magnesium Oxide (Mag-Ox) 400 mg PO DAILY [facility]CLUD[facility] Metoprolol Tartrate (Lopressor) 25 mg PO BRKDIN COUNT INCLUDES THE [facility] Last Admin: 08/15/17 08:12 Dose: 25 mg Pantoprazole Sodium (Protonix Ec Tab) 40 mg PO 0600 [facility]CLUD[facility] Last Admin: 08/15/17 05:53 Dose: 40 mg Tramadol HCl (Ultram) 50 mg PO TID PRN PRN Reason: Pain, moderate (4-7) - Labs Labs: 08/15/17 06:00 08/15/17 06:00 PT 11.5 Seconds (9.9-11.8) 08/12/17 01:00 INR 1.06 (0.93-1.08) 08/12/17 01:00 APTT 27.0 Seconds (23.7-30.8) 08/12/17 01:00 - Constitutional Appears: No Acute Distress - Head Exam Head Exam: ATRAUMATIC, NORMAL INSPECTION, NORMOCEPHALIC - Eye Exam Eye Exam: Normal appearance, PERRL Pupil Exam: NORMAL ACCOMODATION, PERRL - ENT Exam ENT Exam: Mucous Membranes Moist - Neck Exam Neck Exam: Full ROM - Respiratory Exam Respiratory Exam: Clear to Ausculation Bilateral, NORMAL BREATHING PATTERN. absent: Rales, Rhonchi, Wheezes - Cardiovascular Exam Cardiovascular Exam: REGULAR RHYTHM, +S1, +S2. absent: Gallop, Rubs, Murmur - GI/Abdominal Exam GI & Abdominal Exam: Soft, Normal Bowel Sounds. absent: Rigid, Tenderness, Mass , Rebound - Extremities Exam Extremities Exam: Normal Inspection. absent: Calf Tenderness, Pedal Edema - Neurological Exam Neurological Exam: Alert, Awake, CN II-XII Intact, Oriented x3 - Psychiatric Exam Psychiatric exam: Normal Affect, Normal Mood - Skin Skin Exam: Dry, Normal Color, Warm Assessment and Plan - Assessment and Plan (Free Text) Assessment: This is an 87Y F with PMH DM, HTN, HLD who was admitted for generalized weakness. EMS noted L arm weakness at the time. Upon examination she does not have any focal neurological deficits. Head CT did not show any acute abnormalities. Patient was noted to have NSTEMI with elevated troponin. Patient had cardiac cath with stent in RCA. Patient is scheduled for stents of LAD and circumflex in 4 weeks. Weakness could have been secondary to ACS rather than TIA. Carotid dopplers showed 20-39% ICA stenosis bilaterally. Plan: - Continue ASA, Plavix - Continue cardiac management - Continue Lyrica - Continue Physical Therapy Patient should follow up with Dr. Pichardo as outpatient. No further neurological work up is needed at this time. Thank you for this consultation. Please re- consult if needed. Case seen, discussed and reviewed with Dr. Pichardo. Yamila Rojo PGY2 <Jose Pichardo - Last Filed: 08/15/17 10:52> Objective - Vital Signs/Intake and Output Vital Signs (last 24 hours): Temp Pulse Resp BP Pulse Ox 98.8 F 70 20 144/73 98 08/15/17 05:05 08/15/17 08:12 08/15/17 05:05 08/15/17 08:12 08/15/17 05:05 Intake and Output: 08/15/17 08/15/17 06:59 18:59 Intake Total 1260 Output Total 350 Balance 910 - Medications Medications: Current Medications Acetaminophen (Tylenol 325mg Tab) 650 mg PO Q4H PRN PRN Reason: Fever >100.4 F Last Admin: 08/15/17 05:53 Dose: 650 mg Aspirin (Aspirin Chewable) 81 mg PO DAILY COUNT [facility]CLUDES [facility] Last Admin: 08/14/17 09:25 Dose: 81 mg Atorvastatin Calcium (Lipitor) 20 mg PO DIN COUNT INCLUDES [facility] Last Admin: 08/14/17 17:59 Dose: 20 mg Betamethasone/Clotrimazole (Lotrisone) 1 gm TOP BID COUNT INCLUDES [facility] Last Admin: 08/14/17 17:59 Dose: 1 applic Clopidogrel Bisulfate (Plavix) 75 mg PO DAILY COUNT INCLUDES [facility] Docusate Sodium (Colace) 100 mg PO TID COUNT INCLUDES [facility] Insulin Human Regular (Humulin R Low) 0 units SC ACHS COUNT INCLUDES [facility] PRN Reason: Protocol Last Admin: 08/15/17 08:12 Dose: 1 units Isosorbide Mononitrate (Imdur Er) 30 mg PO DAILY COUNT INCLUDES [facility] Lisinopril (Zestril) 5 mg PO DAILY COUNT [facility]CLUDES [facility] Last Admin: 08/14/17 09:25 Dose: 5 mg Magnesium Oxide (Mag-Ox) 400 mg PO DAILY COUNT [facility]CLUDES [facility] Metoprolol Tartrate (Lopressor) 25 mg PO BRKDIN COUNT INCLUDES [facility] Last Admin: 08/15/17 08:12 Dose: 25 mg Pantoprazole Sodium (Protonix Ec Tab) 40 mg PO 0600 COUNT [facility]CLUDES [facility] Last Admin: 08/15/17 05:53 Dose: 40 mg Tramadol HCl (Ultram) 50 mg PO TID PRN PRN Reason: Pain, moderate (4-7) - Labs Labs: 08/15/17 06:00 08/15/17 06:00 PT 11.5 Seconds (9.9-11.8) 08/12/17 01:00 INR 1.06 (0.93-1.08) 08/12/17 01:00 APTT 27.0 Seconds (23.7-30.8) 08/12/17 01:00 Attending/Attestation - Attestation I have personally seen and examined this patient.: Yes I have fully participated in the care of the patient.: Yes I have reviewed all pertinent clinical information, including history, physical exam and plan: Yes
[2017-08-15] MEDS: Magnesium Oxide 400 mg Tab UD PO SCH (11:10)
[2017-08-15] MEDS: Clotrimazole/Betamethasone Cream(15 gm) TOP SCH ×2 (11:10→17:42)
--- NOTE | 2017-08-15 13:00 | CARD ---
APPROVED REPORT EXAM: Two-dimensional and M-mode echocardiogram with Doppler and color Doppler. INDICATION CP/NSTEMI/LVFX 2D DIMENSIONS Left Atrium (2D)3.2 (1.6-4.0cm)IVSd0.9 (0.7-1.1cm) LVDd4.1 (3.9-5.9cm)LVOT Diameter1.9 (1.8-2.4cm) PWd1.2 (0.7-1.1cm)LVDs2.8 (2.5-4.0cm) FS (%) 32.5 %LVEF (%)61.4 (>50%) M-Mode DIMENSIONS Aortic Root2.90 (2.2-3.7cm)Aortic Cusp Exc.0.60 (1.5-2.0cm) Aortic Valve AoV Peak Rcfkzomy140.0cm/sAoV VTI45.4cmAO Peak GR.19mmHg LVOT Peak Ktqckqna91.2cm/sLVOT VTI22.60cmAO Mean GR.10mmHg SONNY (VMAX)1.25aa7WRN (VTI)1.41cm2 Mitral Valve MV E Blqzndzu88.0cm/sMV A Frpswmrv27.6cm/sE/A ratio1.0 TDI Lateral E' Peak V6.14cm/sMedial E' Peak V5.46cm/sE/Lateral E'12.2 E/Medial E'13.7 Pulmonary Valve PV Peak Ljvsgkkv59.1cm/sPV Peak Grad.2mmHg Tricuspid Valve TR Peak Ekefndch076vk/sRAP OVXPHJKT23upBjRB Peak Gr.53mmHg IOUD32cxWd LEFT VENTRICLE The left ventricle is normal size. There is mild concentric left ventricular hypertrophy. The left ventricular function is normal.EF-55-60% There is normal LV segmental wall motion. Transmitral Doppler flow pattern is Grade III-reversible restrictive diastolic dysfunction. No left ventricle thrombus noted on this study. There is no ventricular septal defect visualized. There is no left ventricular aneurysm. There is no mass noted in the left ventricle. RIGHT VENTRICLE The right ventricle is mildly dilated. There is normal right ventricular wall thickness. Systolic function of RV is mildly reduced. ATRIA The left atrium size is normal. The right atrium is borderline dilated. The interatrial septum is intact with no evidence for an atrial septal defect. AORTIC VALVE The aortic valve is calcified and displays decreased opening. There is trivial aortic regurgitation. There is moderate valvular aortic stenosis. SONNY 1.2-1.4 cm2 There is no aortic valvular vegetation. MITRAL VALVE The mitral valve is thickened but opens well. Mitral annular calcification is mild. Mitral regurgitation is trace. There is no mitral valve stenosis. There is no evidence of mitral valve prolapse. TRICUSPID VALVE The tricuspid valve leaflets are thickened , but open well. There is mild tricuspid regurgitation.RVSP-63 mmof hg. There is no tricuspid valve stenosis. There is no tricuspid valve prolapse or vegetation. PULMONIC VALVE The pulmonic valve is mildly thickened. There is trivial pulmonic valvular regurgitation. There is no pulmonic valvular stenosis. GREAT VESSELS The aortic root is normal in size. The ascending aorta is normal in size. The pulmonary artery is normal. The IVC is normal in size and collapses >50% with inspiration. PERICARDIAL EFFUSION There is no pleural effusion. There is no pericardial effusion. <Conclusion> The left ventricle is normal size. There is mild concentric left ventricular hypertrophy. The left ventricular function is normal.EF-55-60% The right ventricle is mildly dilated. Systolic function of RV is mildly reduced. The aortic valve is calcified and displays decreased opening. There is trivial aortic regurgitation. There is moderate valvular aortic stenosis. SONNY 1.2-1.4 cm2 Mitral regurgitation is trace. There is mild tricuspid regurgitation.RVSP-63 mmof hg. The IVC is normal in size and collapses >50% with inspiration. There is no pericardial effusion.
--- NOTE | 2017-08-15 14:54 | CP.PCM.PN ---
Subjective - Date & Time of Evaluation Date of Evaluation: 08/15/17 Time of Evaluation: 14:30 - Subjective Subjective: NAD, denies cp, no SOB Objective - Vital Signs/Intake and Output Vital Signs (last 24 hours): Temp Pulse Resp BP Pulse Ox 98.3 F 62 20 138/76 98 08/15/17 12:00 08/15/17 14:00 08/15/17 12:00 08/15/17 12:00 08/15/17 05:05 Intake and Output: 08/15/17 08/15/17 06:59 18:59 Intake Total 1260 Output Total 350 Balance 910 - Medications Medications: Current Medications Acetaminophen (Tylenol 325mg Tab) 650 mg PO Q4H PRN PRN Reason: Fever >100.4 F Last Admin: 08/15/17 05:53 Dose: 650 mg Aspirin (Aspirin Chewable) 81 mg PO DAILY [facility] Last Admin: 08/15/17 11:11 Dose: 81 mg Atorvastatin Calcium (Lipitor) 20 mg PO DIN [facility] Last Admin: 08/14/17 17:59 Dose: 20 mg Betamethasone/Clotrimazole (Lotrisone) 1 gm TOP BID [facility] Last Admin: 08/15/17 11:10 Dose: 1 applic Clopidogrel Bisulfate (Plavix) 75 mg PO DAILY [facility] Last Admin: 08/15/17 11:11 Dose: 75 mg Docusate Sodium (Colace) 100 mg PO TID [facility] Last Admin: 08/15/17 14:22 Dose: 100 mg Insulin Human Regular (Humulin R Low) 0 units SC ACHS [facility] PRN Reason: Protocol Last Admin: 08/15/17 11:33 Dose: 3 units Isosorbide Mononitrate (Imdur Er) 30 mg PO DAILY [facility] Last Admin: 08/15/17 11:10 Dose: 30 mg Lisinopril (Zestril) 5 mg PO DAILY [facility] Last Admin: 08/15/17 11:11 Dose: 5 mg Magnesium Oxide (Mag-Ox) 400 mg PO DAILY [facility] Last Admin: 08/15/17 11:10 Dose: 400 mg Metoprolol Tartrate (Lopressor) 25 mg PO BRKDIN [facility] Last Admin: 08/15/17 08:12 Dose: 25 mg Pantoprazole Sodium (Protonix Ec Tab) 40 mg PO 0600 [facility] Last Admin: 08/15/17 05:53 Dose: 40 mg Pregabalin (Lyrica) 100 mg PO BID [facility] Last Admin: 08/15/17 14:18 Dose: 100 mg Tramadol HCl (Ultram) 50 mg PO TID PRN PRN Reason: Pain, moderate (4-7) - Labs Labs: 08/15/17 06:00 08/15/17 06:00 PT 11.5 Seconds (9.9-11.8) 08/12/17 01:00 INR 1.06 (0.93-1.08) 08/12/17 01:00 APTT 27.0 Seconds (23.7-30.8) 08/12/17 01:00 - Respiratory Exam Respiratory Exam: Clear to Ausculation Bilateral, NORMAL BREATHING PATTERN - Cardiovascular Exam Cardiovascular Exam: REGULAR RHYTHM - GI/Abdominal Exam GI & Abdominal Exam: Soft, Normal Bowel Sounds - Neurological Exam Neurological Exam: Alert, Awake - Skin Skin Exam: Dry, Warm Assessment and Plan (1) TIA (transient ischemic attack) Status: Acute (2) Cyanosis Status: Acute (3) Type II diabetes mellitus Status: Acute (4) Hypertension Status: Acute (5) Degenerative joint disease involving multiple joints Status: Acute (6) Immobility Status: Acute (7) NSTEMI (non-ST elevated myocardial infarction) Status: Acute - Assessment and Plan (Free Text) Plan: TRCU eval, cardio follow-up s/p cath
--- NOTE | 2017-08-15 16:05 | PN ---
DATE: 08/15/2017 REASON FOR CONSULTATION AND FOLLOWUP: Pny-HL-uiojadn myocardiac infarction, status post PTCA of RCA, rule out aortic stenosis. SUBJECTIVE: The patient is lying flat in the bed, not in apparent distress, and feels a lot better. Family is at the bedside. OBJECTIVE: GENERAL: Not in apparent distress, lying flat in the bed. VITAL SIGNS: Temperature afebrile, heart rate 70, and blood pressure 144/73. HEENT: PERRLA. Extraocular muscles intact. NECK: Supple. No carotid bruits. No thyromegaly. CHEST: Clear to auscultation. HEART: S1 and S2 regular. ABDOMEN: Soft. EXTREMITIES: Clubbing and cyanosis negative. LABORATORY DATA: Blood workup as follows: WBC 7.8, hemoglobin 13.2, hematocrit 41.5, and platelet count 202. Chemistry shows sodium 142, potassium 3.9, chloride 104, carbon dioxide 29, anion gap of 13, BUN 17, creatinine 0.8, total protein 6.8, albumin 3.3, and albumin-globulin ratio 1.1. IMPRESSION AND PLAN: An 87-year-old female with a past medical history significant for diabetes, hypertension, hyperlipidemia, admitted with uel-UH-xiwlwku myocardial infarction, status post percutaneous transluminal coronary angioplasty of right coronary artery done, which is ulcerated plaque in right coronary artery with 90% stenosis, mid left anterior descending 70% to 80% stenosis noted and circumflex 80% stenosis, scheduled for 4 weeks for percutaneous transluminal coronary angioplasty of left anterior descending and circumflex on 09/11/2017 at 7:30. We will get echo to assess left ventricular function and rule out aortic stenosis, could not cross the valve because very tortous left subclavian and possible moderate aortic stenosis. Interim, continue beta-gonzalo. Continue aspirin and Plavix mandatory for 1 year. Continue Imdur 30 mg, continue metoprolol 25 mg b.i.d., and continue lisinopril. Possible discharge planning and the patient is scheduled for percutaneous transluminal coronary angioplasty of left anterior descending and circumflex on 09/11/2017 at 7:30, in between we will get echo to assess left ventricular function and valvular function. We will follow with you. Thank you Dr. See for providing me the opportunity in taking care of Brooke Wang. Tyrell Cloud MD [facility] # [id number]
--- NOTE | 2017-08-16 00:46 | CARD ---
APPROVED REPORT EKG Measurement Heart [id number] <Conclusion> Sinus rhythm with 1st degree AV block with premature atrial complexes T wave abnormality, consider anterolateral ischemia Prolonged QT Abnormal ECG
[2017-08-16] MEDS: Pantoprazole 40 mg EC Tab PO SCH (05:42)
[2017-08-16 06:44] VITALS: O2SAT 98
[2017-08-16 06:53] LABS: BASO # 0.03 K/mm3 (0.0-2.0); BASO % 0.4 % (0.0-3.0); EOS # 0.1 (0.0-0.7); EOS % 0.9 % (1.5-5.0); GRAN # 5.2 (1.4-6.5); GRAN % 68.3 % (50.0-68.0); HEMATOCRIT 40.3 % (36.0-48.0); LYMPH # 1.7 (1.2-3.4); LYMPH % 22.1 % (22.0-35.0); MEAN CELL VOLUME 79.6 fl (80.0-105.0); MEAN CORPUSCULAR HEMOGLOBIN 25.3 pg (25.0-35.0); MEAN CORPUSCULAR HGB CONC 31.8 g/dl (31.0-37.0); MEAN PLATELET VOLUME 10.6 fl (7.0-11.0); MONO # 0.6 (0.1-0.6); MONO % 8.3 % (1.0-6.0); WHITE BLOOD COUNT 7.6 10^3/ul (4.5-11.0)
[2017-08-16 07:16] LABS: BLOOD UREA NITROGEN 24 mg/dL (7-21); CALCIUM 8.7 mg/dL (8.4-10.5); CARBON DIOXIDE 29 mmol/L (21-33); CHLORIDE 105 mmol/L (98-107); GFR AFRICAN-AMERICAN > 60; GLUCOSE,RANDOM 165 mg/dL (70-110); MAGNESIUM 1.9 mg/dL (1.7-2.2); PHOSPHOROUS 3.7 mg/dL (2.5-4.5); POTASSIUM 4.3 mmol/L (3.6-5.0); SODIUM 142 mmol/L (132-148)
[2017-08-16] MEDS: Insulin Reg-LOW-Coverage SC SCH ×2 (08:13→11:55)
[2017-08-16] MEDS: Clotrimazole/Betamethasone Cream(15 gm) TOP SCH (10:01)
[2017-08-16] MEDS: Magnesium Oxide 400 mg Tab UD PO SCH (10:02)
--- NOTE | 2017-08-16 10:58 | PN ---
DATE: 08/16/2017 REASON FOR CONSULTATION AND FOLLOWUP: Non-ST segment myocardial infarction, status post PTCA of RCA, and aortic stenosis, moderate. SUBJECTIVE: The patient denies any chest pain, shortness of breath, and feels a lot better. OBJECTIVE: GENERAL: Lying flat in the bed, not in apparent distress, exercise, and left radial appears okay. No hematoma. Good distal pulse. VITAL SIGNS: Temperature afebrile, heart rate 66, and blood pressure 133/72. HEENT: PERRLA. Extraocular muscles intact. NECK: Supple. No carotid bruit or thyromegaly. CHEST: Clear to auscultation. HEART: S1 and S2 regular. ABDOMEN: Soft. EXTREMITIES: Clubbing and cyanosis negative. LABORATORY DATA: Blood workup as follows: WBC is 7.6, hemoglobin 12.8, hematocrit 40.3, and platelet count 213. Chemistry show sodium 142, potassium 4.0, chloride 105, carbon dioxide 29, anion gap of 12, BUN 24, and creatinine 0.9. IMPRESSION: Acute coronary syndrome, unstable angina, non-ST segment myocardial infarction with maximum troponin 2.36, status post percutaneous transluminal coronary angioplasty of right coronary artery with ulcerated plaque in the but-sn-nauhmq right coronary artery with 90% stenosis. The patient has also stenosis, which is fairly stable, long tubular stenosis in left anterior descending and circumflex 80% and long tubular stenosis in left anterior descending 70% to 80%, which will going to be scheduled in 4 weeks for percutaneous transluminal coronary angioplasty on 09/11/2017 as an outpatient. Diabetes, hypertension, hyperlipidemia, obesity, and body mass index 30 kg/m2. RECOMMENDATIONS: Continue aspirin. Continue Plavix. Continue metoprolol 25 b.i.d. Started Imdur 30 mg daily. Continue lisinopril and continue atorvastatin. We will discontinue telemetry, possible discharge planning and the patient would be readmitted on 09/11/2017 for PTCA of LAD and circumflex as well as a complete left and right heart catheterization with aortic stenosis. Yesterday echo was done because could not LV because of the tortuosity of the left subclavian. Echo shows moderate aortic stenosis. We will follow with you. Thank you Dr. See for providing me the opportunity in taking care of Brooke Wang. Tyrell Cloud MD [facility] # [id number]
[2017-08-16 11:52] VITALS: BP 114/56; PULSE 56; RESP 18; TEMP 98.5
== END 2017-08-16 16:23 | disposition home or self-care (01) | DRG 246 ==
LOC: ED 00:28 → ERH 04:12 → 2RNO 05:42 → OBSVTOIN 08-14 09:36 → 2RSO 08-14 16:09
PROVIDERS: ADMIT Internal Medicine; ATTEND Internal Medicine
PROC: 027034Z Dilation of Coronary Artery, One Artery with Drug-eluting Intraluminal Device, Percutaneous Approach (ICD-10-PCS; principal; 2017-08-14)
PROC: 4A023N7 Measurement of Cardiac Sampling and Pressure, Left Heart, Percutaneous Approach (ICD-10-PCS; 2017-08-14)
PROC: B2111ZZ Fluoroscopy of Multiple Coronary Arteries using Low Osmolar Contrast (ICD-10-PCS; 2017-08-14)
PROC: B2151ZZ Fluoroscopy of Left Heart using Low Osmolar Contrast (ICD-10-PCS; 2017-08-14)
DX: I21.4 Non-ST elevation (NSTEMI) myocardial infarction (principal); R53.2 Functional quadriplegia; E11.42 Type 2 diabetes mellitus with diabetic polyneuropathy; E11.21 Type 2 diabetes mellitus with diabetic nephropathy; G45.9 Transient cerebral ischemic attack, unspecified; I35.0 Nonrheumatic aortic (valve) stenosis; E66.9 Obesity, unspecified; Z68.30 Body mass index [BMI] 30.0-30.9, adult; E78.00 Pure hypercholesterolemia, unspecified; E78.5 Hyperlipidemia, unspecified; H40.9 Unspecified glaucoma; I10 Essential (primary) hypertension; I25.110 Atherosclerotic heart disease of native coronary artery with unstable angina pectoris; I44.0 Atrioventricular block, first degree; I45.10 Unspecified right bundle-branch block; I65.23 Occlusion and stenosis of bilateral carotid arteries; I87.8 Other specified disorders of veins; K59.00 Constipation, unspecified; M17.0 Bilateral primary osteoarthritis of knee; M19.012 Primary osteoarthritis, left shoulder; M19.011 Primary osteoarthritis, right shoulder; M47.9 Spondylosis, unspecified; Z79.02 Long term (current) use of antithrombotics/antiplatelets; Z79.4 Long term (current) use of insulin; Z79.82 Long term (current) use of aspirin; Z79.899 Other long term (current) drug therapy; Z90.49 Acquired absence of other specified parts of digestive tract; R23.0 Cyanosis

== ENCOUNTER 2017-09-11 06:10 | Day surgery (SDC) | payer MEDICARE ==
[2017-09-07 09:11] VITALS: BMI 31.7
--- NOTE | 2017-09-08 21:14 | HP ---
REASON FOR ADMISSION: Elective PTCA of LAD and circumflex. BRIEF CLINICAL HISTORY: This is an 87-year-old female with past medical history of diabetes, hypertension, hyperlipidemia, coronary artery disease, status post acute coronary syndrome, non-STEMI, admitted with a troponin of 2.38. The patient underwent cardiac catheterization, found to have ulcerated plaque in RCA where the patient underwent PTCA of RCA with a drug-eluting stent 4 weeks ago; now, the patient admitted for elective PTCA of LAD and circumflex. The patient had echocardiography done that showed ejection fraction 55% to 60%, moderate aortic stenosis. PAST MEDICAL HISTORY: Significant for ufc-OU-axwvets myocardial infarction, coronary artery disease, diabetes, hypertension, hyperlipidemia, history of PTCA of RCA on 08/15/2017. PREVIOUS CARDIAC WORKUP FOLLOWS: The patient underwent cardiac catheterization and PTCA of RCA on 08/15/2017, could not cross aortic valve because of the tortuosity of the vessels, but the patient underwent echocardiography on 08/15/2017 that revealed preserved ejection fraction of 55% to 60%; mildly dilated aortic valve, calcified with decreased opening; trivial aortic regurgitation; moderate valvular aortic stenosis, valve area 1.2 to 1.4 sq. cm; trace mitral regurgitation; mild tricuspid regurgitation; RV systolic pressure 63. Cardiac catheterization revealed left main without significant disease, bifurcated LAD and circumflex, LAD 70% to 80% stenosis with circumflex 80% stenosis, RCA with 90% ulcerated plaque. The patient underwent successfully PTCA of RCA. CURRENT MEDICATIONS: The patient is taking at home tramadol, simvastatin, Lyrica, oxybutynin, metoprolol, meloxicam, aspirin, Plavix, hydrochlorothiazide and glimepiride. REVIEW OF SYSTEMS: As per HPI. PHYSICAL EXAMINATION: VITAL SIGNS: Temperature afebrile, heart rate 56 and blood pressure 114/50. HEENT EXAM: PERRLA, intact.. NECK: Supple. No carotid bruit or thyromegaly. CHEST: Clear to auscultation. HEART: S1 and S2 regular. ABDOMEN: Soft. EXTREMITIES: Clubbing and cyanosis negative. LABORATORY DATA: As of 08/16/2017, WBC 7.3, hemoglobin 12.4, hematocrit 40.3 and platelet count 213. Chemistry shows sodium 140, potassium 4.3, chloride 105, carbon dioxide 29, anion gap of 12, BUN 24 and creatinine 0.9. IMPRESSION: Coronary artery disease, status post [id number] myocardial infarction, status post acute coronary syndrome with positive troponin of 2.38 on 08/15/2017, status post percutaneous transluminal coronary angioplasty of right coronary artery with a drug-eluting stent, now for staged percutaneous transluminal coronary angioplasty of left anterior descending and circumflex and left ventriculogram. We will follow with you. Thank you Dr. See for providing me the opportunity in taking care of [place]. Tyrell Cloud MD [id number]
[2017-09-11] MEDS ORDERED: Phenylephrine 10 mg/ml Inj ONE (06:46)
[2017-09-11] MEDS ORDERED: Lidocaine 2% Inj (20ml) ONE (06:46)
[2017-09-11] MEDS ORDERED: Iohexol 350mgl/ml 50 ML ONE (06:47)
[2017-09-11] MEDS ORDERED: Iodixanol 320 MG/ML 200 ML BOTTLE IV ONE (06:47)
[2017-09-11] MEDS ORDERED: Iodixanol 320 MG/ML 100 ML BOTTLE IV ONE (06:47)
[2017-09-11] MEDS ORDERED: Nitroglycerin 50mg in D5W 0 MG/0 ML BOTTLE IV ONE (06:47)
[2017-09-11 07:03] LABS: BASO # 0.06 K/mm3 (0.0-2.0); EOS # 0.3 (0.0-0.7); GRAN # 2.93 (1.4-6.5); GRAN % 48.6 % (50.0-68.0); HEMATOCRIT 42.2 % (36.0-48.0); LYMPH % 33.3 % (22.0-35.0); MEAN CORPUSCULAR HEMOGLOBIN 25.7 pg (25.0-35.0); MEAN CORPUSCULAR HGB CONC 31.8 g/dl (31.0-37.0); MEAN PLATELET VOLUME 10.8 fl (7.0-11.0); MONO # 0.7 (0.1-0.6); MONO % 12.1 % (1.0-6.0); RED CELL DISTRIBUTION WIDTH 15.3 % (11.5-14.5)
[2017-09-11] MEDS ORDERED: Midazolam 2 MG/2 ML VIAL ONE (07:10)
[2017-09-11 07:17] LABS: CALCIUM 9.8 mg/dL (8.4-10.5); POTASSIUM 4.4 mmol/L (3.6-5.0)
[2017-09-11 07:19] VITALS: O2SAT 99
[2017-09-11 07:24] LABS: INR 1.02 (0.93-1.08); PARTIAL THROMBOPLASTIN TIME 27.3 Seconds (25.1-36.5)
[2017-09-11] MEDS ORDERED: Eptifibatide 20 mg/10mL Inj IVP ONE (08:17)
[2017-09-11] MEDS ORDERED: Sodium Chloride 0.9% 1,000 ML IV SCH (10:15)
[2017-09-11] MEDS: Insulin Reg-LOW-Coverage SC SCH ×2 (11:41→17:13)
[2017-09-11 12:24] LABS: BASO # 0.03 K/mm3 (0.0-2.0); BASO % 0.5 % (0.0-3.0); EOS # 0.2 (0.0-0.7); EOS % 3.2 % (1.5-5.0); GRAN # 3.3 (1.4-6.5); GRAN % 58.4 % (50.0-68.0); HEMATOCRIT 40.7 % (36.0-48.0); LYMPH # 1.5 (1.2-3.4); LYMPH % 26.4 % (22.0-35.0); MEAN CELL VOLUME 80.8 fl (80.0-105.0); MEAN CORPUSCULAR HEMOGLOBIN 25.8 pg (25.0-35.0); MEAN CORPUSCULAR HGB CONC 31.9 g/dl (31.0-37.0); MEAN PLATELET VOLUME 11.2 fl (7.0-11.0); MONO # 0.7 (0.1-0.6); MONO % 11.5 % (1.0-6.0); RED CELL DISTRIBUTION WIDTH 15.3 % (11.5-14.5); WHITE BLOOD COUNT 5.7 10^3/ul (4.5-11.0)
[2017-09-11 12:36] LABS: CALCIUM 9.1 mg/dL (8.4-10.5); POTASSIUM 4.3 mmol/L (3.6-5.0)
[2017-09-11 12:39] VITALS: TEMP 98.1
[2017-09-11 13:22] VITALS: RESP 20
--- NOTE | 2017-09-11 16:33 | CARD ---
APPROVED REPORT Procedure(s) performed: Complete Heart Catheterization PTCA with Stenting of Proximal Circumflex with Jamar PTCA with Stenting of Mid LAD with Jamar HISTORY The patient is a 87 year-old female with a history of : diabetes mellitus with treatment , coronary artery disease, previous PCI (The PCI date was ), For stage PTCA, initially admitted with ACS / NSTEMI, four weeks ago. INDICATION The indication(s) include : non-STEMI , Four weeks ago, today for stage PTCA of LAD/CX.. CASE TECHNIQUE The patient was brought electively to the Cardiac Catheterization Laboratory in a fasting state and was prepped and draped in a sterile manner. The right femoral groin was infiltrated with 2% Lidocaine subcutaneous anesthesia. A Roula sheath was inserted into the right femoral artery without difficulty. Coronary angiography was performed using coronary diagnostic catheters. The left coronary system was accessed and visualized with a Diagnostic catheter. The right coronary system was accessed and visualized with a Diagnostic catheter. The left ventricle was accessed and visualized with a Pigtail catheter. Left ventricular/Aortic Valve gradient assessed on pullback. Left ventriculogram was performed in KAY projection. A Right Heart Catheterization was performed with a 7 Fr. Zoar-Yudy catheter and pressure were recorded. A 7 sheath was inserted into the right femoral vein without difficulty. Coronary angiography was performed using coronary diagnostic catheters. Closure device was deployed with a 6 Fr Mynx for RFA and RFV without any complications. The patient tolerated the procedure well and there were no complications associated with the procedure. Vessel Analysis The patient's coronary anatomy is right dominant. The left main coronary artery is a medium size vessel with diffuse calcification noted throughout this vessel and without significant stenosis. The left main bifurcates to the left anterior descending and circumflex. The left anterior descending artery is a medium size vessel with diffuse calcification noted throughout this vessel and with significant stenosis. There is a 80% stenosis in the mid segment. The first diagonal branch is a medium size vessel with diffuse calcification noted throughout this vessel and without significant stenosis. The circumflex artery is a large size vessel with diffuse calcification noted throughout this vessel and with significant stenosis. There is a 90% stenosis in the proximal to Mid segmen s two stenosest. The first obtuse marginal branch is a medium size vessel with diffuse calcification noted throughout this vessel and without significant stenosis. The right coronary artery is a medium size vessel with diffuse calcification noted throughout this vessel and without significant stenosis. Patent stents in distal RCA The right posterior descending artery is a medium size vessel with diffuse calcification noted throughout this vessel and without significant stenosis. Left Ventricle The left ventricle is borderline in size with normal contractility. There was no cardiomyopathy. The left ventricular ejection fraction is estimated to be 55-60%. The left ventricular end diastolic pressure is 16 mmHg. Minimal gradient 5 mm across AoV on pull back. Right Heart Cath Findings The Right Atrial Pressure is 6-7 mmHg. The Right Ventricular Pressure is 51/10 mmHg. The Pulmonary Artery Pressure is 51/20 mmHg. with a mean of 27 The Pulmonary Catheter Wedge Pressure is 10 mmHg. PVR 6.2 Wood units. The cardiac output and index were assessed using thermo dilution. The Cardiac Output is 2.73 L/min. PCI Technique Lesion Anticoagulation was achieved with Heparin. Percutaneous coronary intervention was performed on the proximal to mid circumflex artery segment. The lesion stenosis prior to intervention was 90% with SHALA 2 flow. A XB3.5 Guide Catheter was used to engage the ostium. A Ludge wire. choice 158 cm as rogelio wire Interventional Guidewire was used to cross the lesion. BALLOON DILATION A Balloon catheter 2.0/10 was inserted and inflated up to 12atm for 20seconds. STENT DEPLOYMENT A drug-eluting stent 3.0/18 was inserted and inflated up to 12atm for 20seconds. POST STENT DEPLOYMENT BALLOON DILATION A Balloon catheter 3.0/10 NC trek was inserted and inflated up to 14atm for 20seconds. Final angiography reveals 0 % stenosis with SHALA 3 flow. PCI Technique Lesion 2 Percutaneous Coronary Intervention was performed on the mid left anterior descending artery segment. The lesion stenosis prior to intervention was 80% with SHALA 2 flow. A Xb3.5 Guide Catheter was used to engage the ostium. A Ludge 158 cm/Choice PT as budy wire Interventional Guidewire was used to cross the lesion. BALLOON DILATION A Balloon catheter 2.0/10 was inserted and inflated up to 12atm for seconds. STENT DEPLOYMENT A drug-eluting stent 2.5/12 was inserted and inflated up to 12atm for 20seconds. POST STENT DEPLOYMENT BALLOON DILATION A Balloon catheter 3.0/10 NC trek was inserted and inflated up to 14atm for 20seconds. Final angiography reveals 0 % stenosis with SHALA 3 flow. Conclusion Patent stent in RCA done 08/14/2017. Preserved LV Fx, EF-55-60%, EDP16, RHC,RA-6-8,RV-51/10,PA-51/20 with a mean of 27 , PCW-10 CO-2.73, PVR-6.2 Successful pTCA with JAMAR of Mid LAD and Proximal to Mid CX. Minimal gradient across aortic Valve ( 5mm ) on pull back. Recommendations Cardiac Rehabilitation ReferralDaily ASA with Plavix for at least one year Aggressive Medical TherapyCardiac Risk Reduction Program Weight Loss Reduction Program Cc;' Drs. See/ Anjel.
[2017-09-11 17:16] VITALS: BP 138/83
[2017-09-11 17:54] LABS: BASO # 0.05 K/mm3 (0.0-2.0); EOS # 0.2 (0.0-0.7); EOS % 2.9 % (1.5-5.0); GRAN # 3.09 (1.4-6.5); GRAN % 60.7 % (50.0-68.0); HEMATOCRIT 41.5 % (36.0-48.0); LYMPH # 1.2 (1.2-3.4); LYMPH % 24.2 % (22.0-35.0); MEAN CELL VOLUME 81.1 fl (80.0-105.0); MEAN CORPUSCULAR HEMOGLOBIN 25.4 pg (25.0-35.0); MEAN CORPUSCULAR HGB CONC 31.3 g/dl (31.0-37.0); MEAN PLATELET VOLUME 10.9 fl (7.0-11.0); MONO # 0.6 (0.1-0.6); MONO % 11.2 % (1.0-6.0); RED CELL DISTRIBUTION WIDTH 15.2 % (11.5-14.5); WHITE BLOOD COUNT 5.1 10^3/ul (4.5-11.0)
[2017-09-11 18:29] VITALS: PULSE 55
--- NOTE | 2017-09-11 21:40 | CARD ---
APPROVED REPORT EKG Measurement Heart [id number] <Conclusion> Sinus bradycardia with 1st degree AV block with premature atrial complexes Otherwise normal ECG
--- NOTE | 2017-09-11 22:09 | CARD ---
APPROVED REPORT EKG Measurement Heart [id number] [place] [id number] <Conclusion> Sinus bradycardia with marked sinus arrhythmia with 1st degree AV block Otherwise normal ECG
[2017-09-12] MEDS ORDERED: Non Formulary Medication (Simvastatin [Zocor] 20 MG) PO SCH (10:00)
[2017-09-12] MEDS ORDERED: Latanoprost 2.5 ml Opht Soln OU SCH ×2 (10:00)
[2017-09-12] MEDS ORDERED: Non Formulary Medication (Enalapril Maleate [Vasotec] 5 MG) PO SCH (10:00)
== END 2017-09-11 19:19 | disposition home or self-care (01) ==
LOC: CATH 06:10 → 2RSO 10:18 → CATH 19:19
PROVIDERS: ATTEND Internal Medicine Cardiovascular Disease
DX: I25.10 Atherosclerotic heart disease of native coronary artery without angina pectoris (principal); E78.5 Hyperlipidemia, unspecified; E11.9 Type 2 diabetes mellitus without complications; I25.2 Old myocardial infarction; I10 Essential (primary) hypertension; Z79.82 Long term (current) use of aspirin; Z95.5 Presence of coronary angioplasty implant and graft; I08.3 Combined rheumatic disorders of mitral, aortic and tricuspid valves
CPT/HCPCS: 36415; 80048; 80061; 82948; 85025; 85175; 85610; 85730; 86850; 86900; 93005; 93460; 99152; 99153; C1725 ×5; C1760; C1769 ×3; C1874 ×2; C1887; C1894; C2629; C9600; C9601; J1327; J1644 ×2; J2250; J3010; J7030; J7040; Q9967

== ENCOUNTER 2018-11-19 15:49 | Inpatient (IN) | payer MEDICARE ==
--- NOTE | 2018-11-19 17:30 | ED PDOC ---
Arrival/HPI - General Chief Complaint: Lower Extremity Problem/Injury Historian: Patient - History of Present Illness Narrative History of Present Illness (Text): 11/19/18 17:13 88 y/o female, pmh including htn/hld/dm/a.fibb on eliquis, nkda, c/o lt. foot blister noticed about 2 days ago. Pt. is here with the family member, stated that they noticed a blister and heel swelling about 2 days ago, no fever or chills, called pmd and advised the patient/family to come to the ER for evaluation, no recent traveling, no night sweat, no other medical or psychological complaints. Past Medical History - Provider Review Nursing Documentation Reviewed: Yes - Infectious Disease Hx of Infectious Diseases: None - Tetanus Immunization Tetanus Immunization: Unknown - Cardiac Hx Cardiac Disorders: Yes Hx Hypertension: Yes - Pulmonary Hx Respiratory Disorders: Yes (shortness of breath) - Neurological Hx Neurological Disorder: No - HEENT Hx HEENT Disorder: Yes Hx Cataracts: Yes (left eye) Hx Glaucoma: Yes (right eye) - Renal Hx Renal Disorder: No - Endocrine/Metabolic Hx Endocrine Disorders: Yes Hx Diabetes Mellitus Type 1: Yes Hx Diabetes Mellitus Type 2: Yes - Hematological/Oncological Hx Blood Disorders: Yes Hx Blood Transfusions: Yes (PT NOT SURE POSSIBLY) - Integumentary Hx Dermatological Disorder: No - Musculoskeletal/Rheumatological Hx Musculoskeletal Disorders: Yes - Gastrointestinal Hx Gastrointestinal Disorders: No - Genitourinary/Gynecological Hx Genitourinary Disorders: No - Psychiatric Hx Psychophysiologic Disorder: No Hx Substance Use: No - Surgical History Hx Appendectomy: Yes (pt was 36 yrs old) - Anesthesia Hx Anesthesia Reactions: No - Suicidal Assessment Feels Threatened In Home Enviroment: No Family/Social History - Physician Review Nursing Documentation Reviewed: Yes Family/Social History: Unknown Family HX Smoking Status: Never Smoked Hx Alcohol Use: No Hx Substance Use: No Hx Substance Use Treatment: No Allergies/Home Meds Allergies/Adverse Reactions: Allergies No Known Allergies Allergy (Verified 11/19/18 16:48) Home Medications: Home Meds Medication Instructions Recorded Confirmed Pregabalin [Lyrica] 100 mg PO BID 01/08/13 11/20/18 Insulin Human NPH [Humulin N] 40 units SUBCUT DAILY 08/12/17 11/20/18 Insulin Human NPH [Humulin N] 10 units SC HS 09/07/17 11/20/18 Meloxicam [Mobic] 15 mg PO DAILY 09/07/17 11/20/18 Apixaban [Eliquis] 1 tab PO BID 11/20/18 11/20/18 Bimatoprost [Lumigan] 2.5 ml OU DAILY 11/20/18 11/20/18 Brinzolamide/Brimonidine Tart 8 ml OU DAILY 11/20/18 11/20/18 [Simbrinza 1%-0.2% Eye Drops] Enalapril Maleate [Vasotec] 1 tab PO DAILY 11/20/18 11/20/18 Furosemide [Lasix] 1 tab PO BID 11/20/18 11/20/18 Glimepiride [Amaryl] 1 tab PO DAILY 11/20/18 11/20/18 Metoprolol Tartrate [Lopressor] 1 tab PO DAILY 11/20/18 11/20/18 Pantoprazole [Protonix EC Tab] 1 tab PO DAILY 11/20/18 11/20/18 Simvastatin [Zocor] 1 tab PO DAILY 11/20/18 11/20/18 traMADol [Ultram] 50 mg PO TID PRN 11/20/18 11/20/18 Review of Systems - Review of Systems Constitutional: absent: Fatigue, Fevers Eyes: absent: Vision Changes ENT: absent: Hearing Changes Respiratory: absent: SOB, Cough Cardiovascular: absent: Chest Pain Gastrointestinal: absent: Abdominal Pain, Nausea, Vomiting Musculoskeletal: absent: Arthralgias, Back Pain, Myalgias Skin: Skin Lesions, Other (foot blister). absent: Rash, Pruritis, Abscess, Ulcer Neurological: absent: Headache, Dizziness Psychiatric: absent: Anxiety, Depression, Suicidal Ideation Physical Exam Vital Signs Reviewed: Yes Vital Signs Temp Pulse Resp BP Pulse Ox 11/19/18 16:50 99.5 F 65 21 139/71 92 L Temperature: Afebrile Blood Pressure: Normal Pulse: Regular Respiratory Rate: Normal Appearance: Positive for: Well-Appearing, Non-Toxic, Comfortable Pain Distress: None Mental Status: Positive for: Alert and Oriented X 3 - Systems Exam Head: Present: Atraumatic, Normocephalic Pupils: Present: PERRL Extroacular Muscles: Present: EOMI Conjunctiva: Present: Normal Mouth: Present: Moist Mucous Membranes Nose (External): Present: Atraumatic. No: Abrasion, Contusion, Laceration Nose (Internal): Present: Normal Inspection, No Active Bleeding. No: Rhinorrhea Neck: Present: Normal Range of Motion, Trachea Midline. No: Meningeal Signs, MIDLINE TENDERNESS, Paraspinal Tenderness, Lymphadenopathy Respiratory/Chest: Present: Clear to Auscultation, Good Air Exchange, Decreased Breath Sounds. No: Respiratory Distress, Accessory Muscle Use Cardiovascular: Present: Regular Rate and Rhythm, Normal S1, S2, Other (2+ pedal edema noted bilaterally). No: Murmurs Abdomen: No: Tenderness, Distention, Peritoneal Signs, Rebound, Guarding Back: Present: Normal Inspection. No: CVA Tenderness, Midline Tenderness, Paraspinal Tenderness, Pain with Leg Raise, Decubitus Ulcer Upper Extremity: Present: Normal Inspection, Normal ROM, NORMAL PULSES, Capillary Refill < 2s. No: Cyanosis, Edema, Deformity Lower Extremity: Present: Normal Inspection, NORMAL PULSES, Normal ROM, Neurovascularly Intact, Capillary Refill < 2 s, Other (Lt. foot: posterior aspect of the heel noted to have approx. skin ruptured 4cm x 2cm swelling/fluctuant blister lesion with mild erythematous, FROM without limitation, sensation intact, motor 5/5, +DPPT pulses, capillary refill< 2 seconds, neurovascular intact. ). No: Edema, Deformity Neurological: Present: GCS=15, CN II-XII Intact, Speech Normal Skin: Present: Warm, Dry, Normal Color. No: Rashes Psychiatric: Present: Alert, Oriented x 3, Normal Insight, Normal Concentration Medical Decision Making ED Course and Treatment: 11/19/18 17:36 -Labs -ekg -xray -doppler -wound culture -observe and reassess 11/19/18 21:24 -EKG:A.fibb @ 52 BPM, no acute ST or T wave changes noted. She is on eliquis. -CXR: ER wet read: no active disease -Lt. foot xray: ER wet read: +degenerative changes, +swelling of foot, no fracture/dislocation. -LLE Venuous doppler: as per preliminary report, no acute DVT -Labs show wbc 13.9 (IV vanco/zosyn/blood cultures ordered), -Mg within normal limit. -BNP 7175 from 1500, IV lasix 40mg ordered as she is on lasix at home, EF from echo 07/2018 show 60s% -ESR 72 -CRP/Procalcitonin ordered and won't be resulted today -lt. foot wound culture obtained and swabbed -Discussed with the patient and the family about the results, agreed on admission for IV antibiotics scarrer/infectious consults. -Paging Dr. See. 11/19/18 21:30 -I spoke to Dr. See, discussed about the case/labs/radiology results, agreed on admission to his service, routine consult with Dr. Johnson and Alejo (consults ordered). - RAD Interpretation Radiology Orders: -CXR Date of service: 11/19/2018 HISTORY: medical clearance COMPARISON: 08/12/2017. FINDINGS: LUNGS: The lungs are well inflated and clear. PLEURA: No pleural effusions or pneumothorax. CARDIOVASCULAR: The heart is normal in size. No aortic atherosclerotic calcification present. OSSEOUS STRUCTURES: Within normal limits for the patient's age. VISUALIZED UPPER ABDOMEN: Normal. OTHER FINDINGS: None. IMPRESSION: No active pulmonary disease. -Lt. foot xray Date of service: 11/19/2018 PROCEDURE: Left Foot Radiographs. HISTORY: lt. foot heel swelling/blister? COMPARISON: None. FINDINGS: BONES: There is severe diffuse bone demineralization no acute displaced fracture or destruction. Alignment is JOINTS: Mild degenerative osteoarthrosis. SOFT TISSUES: Severe dorsal soft tissue swelling. OTHER FINDINGS: None. IMPRESSION: Severe dorsal soft tissue swelling. No acute fracture or bone destruction -LLE Venuous doppler: as per preliminary report, no acute DVT PROCEDURE: Left lower extremity venous US HISTORY: Leg pain and swelling. Evaluate for DVT. PHYSICIAN(S): Adam Kurtz MD. TECHNIQUE: Duplex sonography and color-flow Doppler with graded compression were used to evaluate the deep venous system of the left lower extremity. The exam is limited by body habitus and edema. The lower femoral veins are not well seen FINDINGS: The visualized deep venous system of the left lower extremity is sonographically normal and compressible. Normal wave forms and augmentation are seen. There is no sonographic evidence for deep venous thrombosis in the visualized segments of the left lower extremity. IMPRESSION: 1. No sonographic evidence for deep venous thrombosis in the visualized segments of the left lower extremity. 2. Limited study. Ultrasound Sonographer: Radiologist - EKG Interpretation EKG Interpretation (Text): 11/19/18 20:07 A.fibb @ 52 BPM, no acute ST or T wave changes noted. Interpreted by ED Physician: Yes Type: 12 lead EKG Comparison: Com.w/previous EKG - PA / SCIENTIFIC PROGRAMMER / Resident Statement MD/DO has reviewed & agrees with the documentation as recorded. Disposition/Present on Arrival - Present on Arrival Any Indicators Present on Arrival: No History of DVT/PE: No History of Uncontrolled Diabetes: No Urinary Catheter: No History of Decub. Ulcer: No History Surgical Site Infection Following: None - Disposition Have Diagnosis and Disposition been Completed?: Yes Diagnosis: Blister of foot, Cellulitis, Pedal edema, Leukocytosis, Type II diabetes mellitus, Elevated brain natriuretic peptide (BNP) level, Atrial fibrillation Disposition: HOSPITALIZED Disposition Time: 19:57 Patient Plan: Admission, Observation, Telemetry Patient Problems: Current Active Problems Problem Status Onset Type II diabetes mellitus Acute Blister of foot Acute Cellulitis Acute Pedal edema Acute Leukocytosis Acute Elevated brain natriuretic peptide (BNP) level Acute Atrial fibrillation Acute Condition: STABLE
[2018-11-19 19:04] LABS: ALB/GLOB RATIO 0.9 (1.1-1.8); ALBUMIN 3.2 g/dL (3.0-4.8); ALT/SGPT 26 U/L (7-56); AST/SGOT 42 U/L (14-36); BLOOD UREA NITROGEN 16 mg/dL (7-21); CALCIUM 8.7 mg/dL (8.4-10.5); GFR NON-AFRICAN AMERICAN > 60
[2018-11-19 19:06] LABS: BASO # 0.03 K/mm3 (0.0-2.0); BASO % 0.2 % (0.0-3.0); EOS % 0.1 % (1.5-5.0); GRAN # 11.04 (1.4-6.5); GRAN % 79.7 % (50.0-68.0); HEMOGLOBIN 13.4 g/dL (12.0-16.0); LYMPH # 1.4 (1.2-3.4); MEAN CELL VOLUME 76.8 fl (80.0-105.0); MEAN CORPUSCULAR HEMOGLOBIN 23.3 pg (25.0-35.0); MEAN CORPUSCULAR HGB CONC 30.4 g/dl (31.0-37.0); MEAN PLATELET VOLUME 10.1 fl (7.0-11.0); MONO # 1.4 (0.1-0.6); RBC 5.74 10^6/uL (3.5-6.1); RED CELL DISTRIBUTION WIDTH 17.7 % (11.5-14.5); WHITE BLOOD COUNT 13.9 10^3/uL (4.5-11.0)
[2018-11-19 19:11] LABS: B-TYPE NATRIURETIC PEPTIDE 7170 pg/mL (0-450)
[2018-11-19] MEDS ORDERED: Piperacillin/Tazobact 3.375 gm 100 ML IVPB STA (19:21)
[2018-11-19] MEDS ORDERED: Vancomycin 1gm in NS 250ml 1 GM/250 ML BAG IVPB STA (19:21)
[2018-11-19 20:29] LABS: INR 1.67; PARTIAL THROMBOPLASTIN TIME 35.1 Seconds (25.1-36.5); PROTHROMBIN TIME 19.4 SECONDS (9.4-12.5)
--- NOTE | 2018-11-19 23:28 | CP.PCM.PCO ---
<Hodan Boyle - Last Filed: 11/19/18 23:27> Physician Communication Note - Physician Communication Note Physician Communication Note: Patient had 2.69 second pause with HR in the 30s, and went back to mid 50s <Rashaad Dillard - Last Filed: 11/20/18 01:26> Attending/Attestation - Attestation I have personally seen and examined this patient.: No I have fully participated in the care of the patient.: No I have reviewed all pertinent clinical information: No
[2018-11-20] MEDS ORDERED: Glucagon Recombinant 1 mg Inj IV ONE (00:15)
[2018-11-20] MEDS: Vancomycin 1gm in NS 250ml 1 GM/250 ML BAG IVPB SCH ×2 (00:29→10:36)
--- NOTE | 2018-11-20 02:42 | CP.PCM.PN ---
<Franck Baig - Last Filed: 11/20/18 02:31> Subjective - Date & Time of Evaluation Date of Evaluation: 11/20/18 Time of Evaluation: 00:15 - Subjective Subjective: House Resident Note Franck Baig DO IM PGY-3 Called by nursing due to several episodes of bradycardia into 30s, reported as sinus pauses. On reviewing telemetry on floor, not able to appreciate P-waves on telemetry leads. EKG ordered, no P-waves appreciable on EKG as well, so afib with slow rate (40's to 50's, intermittently drops into 30's before improving), possible sick sinus syndrome. Charting and labs reviewed, noted to be on lopressor at home; not currently on any beta-blockers since admission but ordered glucagon push and drip to reverse possible overdose of home beta- gonzalo. Maintaining adequate pressures, remains awake and alert, AAOx3. Trop obtained to rule out acute infarct, and was negative. As per charting, previously seen by Dr. Cloud for Cardio, and had stenting done by him in 2017, so consulted his service for irregular bradycardia/possible sick sinus syndrome, call placed to service to notify. Pacer pads placed in case patient becomes hemodynamically unstable, but no need for pacing at this moment. Will continue to monitor. Case discussed with overnight attending, Dr. Sharma. Objective - Vital Signs/Intake and Output Vital Signs (last 24 hours): Temp Pulse Resp BP Pulse Ox 98.9 F 55 L 16 119/56 L 100 11/19/18 22:39 11/19/18 22:39 11/19/18 22:39 11/19/18 22:39 11/19/18 22:39 - Medications Medications: Current Medications Vancomycin HCl (Vancomycin 1gm) 1 gm in 250 mls @ 167 mls/hr IVPB Q12 LORELEI; Protocol Last Admin: 11/20/18 00:29 Dose: Not Given Glucagon 5 mg/ Sodium Chloride 50 mls @ 10 mls/hr IVPB ONCE ONE Stop: 11/20/18 05:14 Last Admin: 11/20/18 00:35 Dose: 10 mls/hr - Labs Labs: 11/19/18 18:30 11/19/18 18:30 PT 19.4 SECONDS (9.4-12.5) H 11/19/18 20:00 INR 1.67 11/19/18 20:00 APTT 35.1 Seconds (25.1-36.5) 11/19/18 20:00 <Rashaad Dillard - Last Filed: 11/20/18 06:51> Objective - Vital Signs/Intake and Output Vital Signs (last 24 hours): Temp Pulse Resp BP Pulse Ox 98.4 F 40 L 18 142/50 L 97 11/20/18 06:00 11/20/18 06:00 11/20/18 06:00 11/20/18 06:00 11/20/18 06:00 - Medications Medications: Current Medications Vancomycin HCl (Vancomycin 1gm) 1 gm in 250 mls @ 167 mls/hr IVPB Q12 LORELEI; Protocol Last Admin: 11/20/18 00:29 Dose: Not Given - Labs Labs: 11/19/18 18:30 11/19/18 18:30 PT 19.4 SECONDS (9.4-12.5) H 11/19/18 20:00 INR 1.67 11/19/18 20:00 APTT 35.1 Seconds (25.1-36.5) 11/19/18 20:00 Attending/Attestation - Attestation I have personally seen and examined this patient.: No I have fully participated in the care of the patient.: No I have reviewed all pertinent clinical information, including history, physical exam and plan: No
[2018-11-20 04:34] VITALS: BMI 33.3
--- NOTE | 2018-11-20 08:44 | RAD ---
Date of service: 11/19/2018 HISTORY: medical clearance COMPARISON: 08/12/2017. FINDINGS: LUNGS: The lungs are well inflated and clear. PLEURA: No pleural effusions or pneumothorax. CARDIOVASCULAR: The heart is normal in size. No aortic atherosclerotic calcification present. OSSEOUS STRUCTURES: Within normal limits for the patient's age. VISUALIZED UPPER ABDOMEN: Normal. OTHER FINDINGS: None. IMPRESSION: No active pulmonary disease.
--- NOTE | 2018-11-20 09:21 | RAD ---
Date of service: 11/19/2018 PROCEDURE: Left Foot Radiographs. HISTORY: lt. foot heel swelling/blister? COMPARISON: None. FINDINGS: BONES: There is severe diffuse bone demineralization no acute displaced fracture or destruction. Alignment is JOINTS: Mild degenerative osteoarthrosis. SOFT TISSUES: Severe dorsal soft tissue swelling. OTHER FINDINGS: None. IMPRESSION: Severe dorsal soft tissue swelling. No acute fracture or bone destruction
--- NOTE | 2018-11-20 09:50 | US ---
PROCEDURE: Left lower extremity venous US HISTORY: Leg pain and swelling. Evaluate for DVT. PHYSICIAN(S): Adam Kurtz MD. TECHNIQUE: Duplex sonography and color-flow Doppler with graded compression were used to evaluate the deep venous system of the left lower extremity. The exam is limited by body habitus and edema. The lower femoral veins are not well seen FINDINGS: The visualized deep venous system of the left lower extremity is sonographically normal and compressible. Normal wave forms and augmentation are seen. There is no sonographic evidence for deep venous thrombosis in the visualized segments of the left lower extremity. IMPRESSION: 1. No sonographic evidence for deep venous thrombosis in the visualized segments of the left lower extremity. 2. Limited study.
[2018-11-20] MEDS: Insulin Reg-LOW-Coverage SC SCH ×3 (12:51→21:40)
--- NOTE | 2018-11-20 12:59 | HP ---
DATE OF EXAM: 11/20/2018 HISTORY OF PRESENT ILLNESS: The patient is an 88-year-old female admitted through the emergency department on 11/19/2018 with an infected blister of the left foot. The patient is diabetic. The blister was incised and drained in the emergency department. The patient complained of 2-3 days of increased swelling and pain in the left leg and some lesser swelling in the right leg as well. She denies any chest pain or shortness of breath. There is no fever, no chills. No nausea, no vomiting, no diarrhea. PAST MEDICAL HISTORY: Includes coronary artery disease, status post stent placement approximately 1 year ago with a history of bor-MM-[id number] elevation myocardial infarction. The patient also has a history of hypertension, type 2 diabetes mellitus and atrial fibrillation as well as degenerative joint disease and congestive heart failure and hypercholesterolemia. PAST SURGICAL HISTORY: Includes excision of benign pulmonary nodule of right lung in the remote past. ALLERGIES: THE PATIENT HAS NO KNOWN DRUG ALLERGIES. CURRENT MEDICATIONS: Include Ecotrin 81 mg, Eliquis 2.5 mg twice daily, Lyrica 100 mg twice daily, Zocor 20 mg daily, Protonix 40 mg daily, enalapril 5 mg daily, glimepiride 4 mg daily, tramadol 50 mg three times daily. SOCIAL HISTORY: The patient denies alcohol, tobacco use. REVIEW OF SYSTEMS: Essentially as above. PHYSICAL EXAMINATION: GENERAL: The patient is a well-developed, somewhat obese female in no acute distress. VITAL SIGNS: Blood pressure 155/63, pulse 41, temperature 98.4, respiratory rate 18. HEENT: Head is normocephalic, atraumatic. Pupils equal, round, reactive to light. Extraocular movements intact. NECK: Supple. No thyromegaly. No carotid bruit. No adenopathy. LUNGS: Show a few rales at the bases. HEART: Regular rate and rhythm. Grade 2 to 3/6 systolic murmur. ABDOMEN: Soft, obese, nontender. Bowel sounds are normoactive. EXTREMITIES: With 3+ edema to the knees bilaterally. Wound dressing in the left foot is intact with no drainage noted. NEUROLOGIC: The patient is awake and oriented x3 without focal sensory or motor deficits. SKIN: Warm and dry. LABORATORY DATA: WBC is 13.9, hemoglobin 13.4, hematocrit 44.1. Sodium 137, potassium 4.1, chloride 97, BUN 16, creatinine 0.7, glucose 176. BNP is elevated 7170. Troponin is 0.01. IMPRESSION: 1. Infected blister of the left leg with cellulitis of the left lower extremity. 2. Hypertension, hypertensive cardiovascular disease, congestive heart failure. 3. Coronary artery disease status post [id number] elevation myocardial infarction with stent placement x2. Valvular heart disease with moderate aortic stenosis. 4. Type 2 diabetes mellitus. 5. Degenerative joint disease/obesity. 6. Hypercholesterolemia. PLAN: The patient is admitted to the Telemetry Unit. We will obtain cardiology consultation with Dr. Cloud, IV Lasix, O2. Start antibiotics with Zosyn 3.375 g IV every 6 hours. Infectious Disease consultation, Dr. Dhillon, physical therapy and social work for discharge planning. MARGIE Wall MD
[2018-11-20 13:16] LABS: PH,URINE 7.5 (4.7-8.0); URINE BILIRUBIN NEGATIVE (NEGATIVE); URINE BLOOD TRACE-INTACT (NEGATIVE); URINE GLUCOSE (UA) NEGATIVE (NEGATIVE); URINE LEUKOCYTE ESTERASE SMALL Leu/uL (NEGATIVE); URINE PROTEIN NEGATIVE mg/dL (<30 mg/dL)
--- NOTE | 2018-11-20 13:16 | CP.PCM.PN ---
Subjective - Date & Time of Evaluation Date of Evaluation: 11/20/18 Time of Evaluation: 13:14 - Subjective Subjective: Podiatry consulte note for Dr. Johnson, 88 y/o female, pmh including htn/hld/dm/a.fibb on eliquis, nkda, c/o lt. foot blister noticed about 2 days ago. Pt. is here with the family member, stated that they noticed a blister and heel swelling about 2 days ago, no fever or chills, called pmd and advised the patient/family to come to the ER for evaluation, no recent traveling, no night sweat, no other medical or psychological complaints. Objective - Vital Signs/Intake and Output Vital Signs (last 24 hours): Temp Pulse Resp BP Pulse Ox 97.9 F 54 L 19 168/65 H 97 11/20/18 12:00 11/20/18 12:50 11/20/18 12:00 11/20/18 12:50 11/20/18 06:00 Intake and Output: 11/20/18 11/20/18 06:59 18:59 Intake Total 0 Output Total 900 Balance -900 - Medications Medications: Current Medications Apixaban (Eliquis) 2.5 mg PO BID [facility]; Protocol Furosemide (Lasix) 40 mg IVP DAILY [facility] Last Admin: 11/20/18 10:36 Dose: 40 mg Vancomycin HCl (Vancomycin 1gm) 1 gm in 250 mls @ 167 mls/hr IVPB Q12 [facility]; Protocol Last Admin: 11/20/18 10:36 Dose: 167 mls/hr Insulin Human Regular (Humulin R Low) 0 units SC ACHS [facility]; Protocol Last Admin: 11/20/18 12:51 Dose: 1 unit Lisinopril (Zestril) 5 mg PO DAILY [facility] Last Admin: 11/20/18 12:50 Dose: 5 mg Pantoprazole Sodium (Protonix Ec Tab) 40 mg PO 0600 [facility] Pregabalin (Lyrica) 100 mg PO BID [facility] Ticagrelor (Brilinta) 90 mg PO BID [facility] Tramadol HCl (Ultram) 50 mg PO TID [facility] Last Admin: 11/20/18 10:35 Dose: Not Given - Labs Labs: 11/19/18 18:30 11/19/18 18:30 PT 19.4 SECONDS (9.4-12.5) H 11/19/18 20:00 INR 1.67 11/19/18 20:00 APTT 35.1 Seconds (25.1-36.5) 11/19/18 20:00
[2018-11-20 13:17] LABS: URINE APPEARANCE CLEAR (CLEAR); URINE COLOR YELLOW (YELLOW)
--- NOTE | 2018-11-20 13:17 | CP.PCM.CON ---
<Gabriela Nunez - Last Filed: 11/20/18 15:59> History of Present Illness - History of Present Illness History of Present Illness: Podiatry consulte note for Dr. Johnson, 88 y/o female, pmh including htn/hld/dm/a.fibb on eliquis, nkda, c/o lt. foot blister noticed about 2 days ago. Pt. is here with the daughter, stated that they noticed a blister and heel swelling about 2 days ago, no fever or chills, called pmd and advised the patient/family to come to the ER for evaluation, no recent traveling, no night sweat, no other medical or psychological complaints. Admits to severe pain to the left lower extremity. Denies any other pedal complains. Past Patient History - Infectious Disease Hx of Infectious Diseases: None - Tetanus Immunizations Tetanus Immunization: Unknown - Past Social History Smoking Status: Never Smoked - CARDIAC Hx Hypercholesterolemia: Yes Hx Hypertension: Yes Other/Comment: afib - PULMONARY Hx Respiratory Disorders: Yes (shortness of breath) - NEUROLOGICAL Hx Neurological Disorder: No - HEENT Hx HEENT Problems: Yes Hx Cataracts: Yes (left eye) Hx Glaucoma: Yes (right eye) - RENAL Hx Chronic Kidney Disease: No - ENDOCRINE/METABOLIC Hx Diabetes Mellitus Type 2: Yes - HEMATOLOGICAL/ONCOLOGICAL Hx Blood Disorders: Yes Hx Blood Transfusions: Yes (PT NOT SURE POSSIBLY) - INTEGUMENTARY Hx Dermatological Problems: No - MUSCULOSKELETAL/RHEUMATOLOGICAL Hx Falls: No - GASTROINTESTINAL Hx Gastrointestinal Disorders: No - GENITOURINARY/GYNECOLOGICAL Hx Genitourinary Disorders: No - PSYCHIATRIC Hx Substance Use: No - SURGICAL HISTORY Hx Appendectomy: Yes (pt was 36 yrs old) - ANESTHESIA Hx Anesthesia Reactions: No Meds Allergies/Adverse Reactions: Allergies Allergy/AdvReac Type Severity Reaction Status Date / Time No Known Allergies Allergy Verified 11/19/18 16:48 - Medications Medications: Current Medications Apixaban (Eliquis) 2.5 mg PO BID [facility]; Protocol Furosemide (Lasix) 40 mg IVP DAILY [facility] Last Admin: 11/20/18 10:36 Dose: 40 mg Vancomycin HCl (Vancomycin 1gm) 1 gm in 250 mls @ 167 mls/hr IVPB Q12 [facility]; Protocol Last Admin: 11/20/18 10:36 Dose: 167 mls/hr Insulin Human Regular (Humulin R Low) 0 units SC ACHS [facility]; Protocol Last Admin: 11/20/18 12:51 Dose: 1 unit Lisinopril (Zestril) 5 mg PO DAILY [facility] Last Admin: 11/20/18 12:50 Dose: 5 mg Pantoprazole Sodium (Protonix Ec Tab) 40 mg PO 0600 [facility] Pregabalin (Lyrica) 100 mg PO BID [facility] Ticagrelor (Brilinta) 90 mg PO BID [facility] Tramadol HCl (Ultram) 50 mg PO TID [facility] Last Admin: 11/20/18 10:35 Dose: Not Given Physical Exam - Extremities Exam Extremities exam: Negative for: calf tenderness Additional comments: Bilateral lower extremity exam: Vascular: DP/PT nonpalpable secondary to pitting edema, CFT <3 secs x 10, TG warm to warm, erythema noted in the left heel, increased edema noted in the left heel Derm: no open lesions, blood filled blister noted at the plantar and posterior aspect of the left heel, no active drainage, minimal erythema noted tiny blister, edema noted surround the blister ortho: pain on palpation to the blood filled blister neuro: protective sensation intact via ipswich 4/4 b/l - Neurological Exam Neurological exam: Alert, Oriented x3 Results - Vital Signs Recent Vital Signs: Last Vital Signs Temp 97.9 F 11/20/18 12:00 Pulse 54 L 11/20/18 12:50 Resp 19 11/20/18 12:00 BP 168/65 H 11/20/18 12:50 Pulse Ox 97 11/20/18 06:00 - Labs Result Diagrams: 11/19/18 18:30 11/19/18 18:30 Labs: Laboratory Results - last 24 hr 11/19/18 11/19/18 11/19/18 18:30 18:30 18:30 WBC 13.9 H RBC 5.74 Hgb 13.4 Hct 44.1 MCV 76.8 L D MCH 23.3 L MCHC 30.4 L RDW 17.7 H Plt Count 224 MPV 10.1 Gran % 79.7 H Lymph % (Auto) 10.0 L [place] % (Auto) 10.0 H Eos % (Auto) 0.1 L Baso % (Auto) 0.2 Gran # 11.04 H Lymph # (Auto) 1.4 [place] # (Auto) 1.4 H Eos # (Auto) 0.0 Baso # (Auto) 0.03 ESR 72 H PT INR APTT Sodium 137 Potassium 4.1 Chloride 97 L Carbon Dioxide 35 H Anion Gap 9 L BUN 16 Creatinine 0.7 Est GFR ( Amer) > 60 Est GFR (Non-Af Amer) > 60 POC Glucose (mg/dL) Random Glucose 176 H Calcium 8.7 Magnesium 1.9 Total Bilirubin 1.7 H AST 42 H ALT 26 Alkaline Phosphatase 88 Troponin I C-Reactive Protein 58.60 H NT-Pro-B Natriuret Pep 7170 H Total Protein 6.9 Albumin 3.2 Globulin 3.7 Albumin/Globulin Ratio 0.9 L Procalcitonin 0.33 11/19/18 11/19/18 11/20/18 20:00 22:43 00:17 WBC RBC Hgb Hct MCV MCH MCHC RDW Plt Count MPV Gran % Lymph % (Auto) [place] % (Auto) Eos % (Auto) Baso % (Auto) Gran # Lymph # (Auto) [place] # (Auto) Eos # (Auto) Baso # (Auto) ESR PT 19.4 H INR 1.67 APTT 35.1 Sodium Potassium Chloride Carbon Dioxide Anion Gap BUN Creatinine Est GFR ( Amer) Est GFR (Non-Af Amer) POC Glucose (mg/dL) 131 H 155 H Random Glucose Calcium Magnesium Total Bilirubin AST ALT Alkaline Phosphatase Troponin I C-Reactive Protein NT-Pro-B Natriuret Pep Total Protein Albumin Globulin Albumin/Globulin Ratio Procalcitonin 11/20/18 11/20/18 00:20 07:31 WBC RBC Hgb Hct MCV MCH MCHC RDW Plt Count MPV Gran % Lymph % (Auto) [place] % (Auto) Eos % (Auto) Baso % (Auto) Gran # Lymph # (Auto) [place] # (Auto) Eos # (Auto) Baso # (Auto) ESR PT INR APTT Sodium Potassium Chloride Carbon Dioxide Anion Gap BUN Creatinine Est GFR ( Amer) Est GFR (Non-Af Amer) POC Glucose (mg/dL) 169 H Random Glucose Calcium Magnesium Total Bilirubin AST ALT Alkaline Phosphatase Troponin I 0.01 D C-Reactive Protein NT-Pro-B Natriuret Pep Total Protein Albumin Globulin Albumin/Globulin Ratio Procalcitonin Assessment & Plan - Assessment and Plan (Free Text) Assessment: 88 yo female seen and evaluated for left heel blister Plan: Patient seen and evaluated Chart, labs and vitals reviewed; WBC 13.9 Left heel blister drained using sterile suture removal kit. No purulent drainage noted. Cultures taken and ordered. Left foot x-rays reviewed; no osseous erosions noted. Left foot dressed with maxorb, ABD DSD Podiatry will continue to follow the patient thank you for the consult. <Milton Shaikh - Last Filed: 11/20/18 17:52> Meds - Medications Medications: Current Medications Apixaban (Eliquis) 2.5 mg PO BID [facility]; Protocol Atorvastatin Calcium (Lipitor) 10 mg PO DIN [facility] Furosemide (Lasix) 40 mg IVP DAILY [facility] Last Admin: 11/20/18 10:36 Dose: 40 mg Ceftaroline Fosamil 600 mg/ (Sodium Chloride) 100 mls @ 100 mls/hr IVPB Q12 [facility]; Protocol Stop: 11/29/18 17:16 Insulin Human Regular (Humulin R Low) 0 units SC ACHS [facility]; Protocol Last Admin: 11/20/18 12:51 Dose: 1 unit Lisinopril (Zestril) 5 mg PO DAILY [facility] Last Admin: 11/20/18 12:50 Dose: 5 mg Pantoprazole Sodium (Protonix Ec Tab) 40 mg PO 0600 [facility] Pregabalin (Lyrica) 100 mg PO BID [facility] Tramadol HCl (Ultram) 50 mg PO TID [facility] Last Admin: 11/20/18 14:05 Dose: Not Given Results - Vital Signs Recent Vital Signs: Last Vital Signs Temp 97.9 F 11/20/18 12:00 Pulse 54 L 11/20/18 12:50 Resp 19 11/20/18 12:00 BP 168/65 H 11/20/18 12:50 Pulse Ox 97 11/20/18 06:00 - Labs Result Diagrams: 11/19/18 18:30 11/19/18 18:30 Labs: Laboratory Results - last 24 hr 11/19/18 11/19/18 11/19/18 18:30 18:30 18:30 WBC 13.9 H RBC 5.74 Hgb 13.4 Hct 44.1 MCV 76.8 L D MCH 23.3 L MCHC 30.4 L RDW 17.7 H Plt Count 224 MPV 10.1 Gran % 79.7 H Lymph % (Auto) 10.0 L [place] % (Auto) 10.0 H Eos % (Auto) 0.1 L Baso % (Auto) 0.2 Gran # 11.04 H Lymph # (Auto) 1.4 [place] # (Auto) 1.4 H Eos # (Auto) 0.0 Baso # (Auto) 0.03 ESR 72 H PT INR APTT Sodium 137 Potassium 4.1 Chloride 97 L Carbon Dioxide 35 H Anion Gap 9 L BUN 16 Creatinine 0.7 Est GFR ( Amer) > 60 Est GFR (Non-Af Amer) > 60 POC Glucose (mg/dL) Random Glucose 176 H Calcium 8.7 Magnesium 1.9 Total Bilirubin 1.7 H AST 42 H ALT 26 Alkaline Phosphatase 88 Troponin I C-Reactive Protein 58.60 H NT-Pro-B Natriuret Pep 7170 H Total Protein 6.9 Albumin 3.2 Globulin 3.7 Albumin/Globulin Ratio 0.9 L Procalcitonin 0.33 Urine Color Urine Appearance Urine pH Ur Specific [place] Urine Protein Urine Glucose (UA) Urine Ketones Urine Blood Urine Nitrate Urine Bilirubin Urine Urobilinogen Ur Leukocyte Esterase Urine RBC Urine WBC Ur Epithelial Cells Urine Bacteria 11/19/18 11/19/18 11/20/18 20:00 22:43 00:17 WBC RBC Hgb Hct MCV MCH MCHC RDW Plt Count MPV Gran % Lymph % (Auto) [place] % (Auto) Eos % (Auto) Baso % (Auto) Gran # Lymph # (Auto) [place] # (Auto) Eos # (Auto) Baso # (Auto) ESR PT 19.4 H INR 1.67 APTT 35.1 Sodium Potassium Chloride Carbon Dioxide Anion Gap BUN Creatinine Est GFR ( Amer) Est GFR (Non-Af Amer) POC Glucose (mg/dL) 131 H 155 H Random Glucose Calcium Magnesium Total Bilirubin AST ALT Alkaline Phosphatase Troponin I C-Reactive Protein NT-Pro-B Natriuret Pep Total Protein Albumin Globulin Albumin/Globulin Ratio Procalcitonin Urine Color Urine Appearance Urine pH Ur Specific [place] Urine Protein Urine Glucose (UA) Urine Ketones Urine Blood Urine Nitrate Urine Bilirubin Urine Urobilinogen Ur Leukocyte Esterase Urine RBC Urine WBC Ur Epithelial Cells Urine Bacteria 11/20/18 11/20/18 11/20/18 00:20 07:31 11:13 WBC RBC Hgb Hct MCV MCH MCHC RDW Plt Count MPV Gran % Lymph % (Auto) [place] % (Auto) Eos % (Auto) Baso % (Auto) Gran # Lymph # (Auto) [place] # (Auto) Eos # (Auto) Baso # (Auto) ESR PT INR APTT Sodium Potassium Chloride Carbon Dioxide Anion Gap BUN Creatinine Est GFR ( Amer) Est GFR (Non-Af Amer) POC Glucose (mg/dL) 169 H 171 H Random Glucose Calcium Magnesium Total Bilirubin AST ALT Alkaline Phosphatase Troponin I 0.01 D C-Reactive Protein NT-Pro-B Natriuret Pep Total Protein Albumin Globulin Albumin/Globulin Ratio Procalcitonin Urine Color Urine Appearance Urine pH Ur Specific [place] Urine Protein Urine Glucose (UA) Urine Ketones Urine Blood Urine Nitrate Urine Bilirubin Urine Urobilinogen Ur Leukocyte Esterase Urine RBC Urine WBC Ur Epithelial Cells Urine Bacteria 11/20/18 11/20/18 13:11 16:10 WBC RBC Hgb Hct MCV MCH MCHC RDW Plt Count MPV Gran % Lymph % (Auto) [place] % (Auto) Eos % (Auto) Baso % (Auto) Gran # Lymph # (Auto) [place] # (Auto) Eos # (Auto) Baso # (Auto) ESR PT INR APTT Sodium Potassium Chloride Carbon Dioxide Anion Gap BUN Creatinine Est GFR ( Amer) Est GFR (Non-Af Amer) POC Glucose (mg/dL) 186 H Random Glucose Calcium Magnesium Total Bilirubin AST ALT Alkaline Phosphatase Troponin I C-Reactive Protein NT-Pro-B Natriuret Pep Total Protein Albumin Globulin Albumin/Globulin Ratio Procalcitonin Urine Color Yellow Urine Appearance Clear Urine pH 7.5 Ur Specific [place] 1.015 Urine Protein Negative Urine Glucose (UA) Negative Urine Ketones Negative Urine Blood Trace-intact H Urine Nitrate Negative Urine Bilirubin Negative Urine Urobilinogen 4.0 H Ur Leukocyte Esterase Small H Urine RBC 0 - 2 Urine WBC 1 - 3 Ur Epithelial Cells 1 - 3 Urine Bacteria Small Attending/Attestation - Attestation I have personally seen and examined this patient.: Yes I have fully participated in the care of the patient.: Yes I have reviewed all pertinent clinical information: Yes
--- NOTE | 2018-11-20 13:22 | CP.PCM.PCO ---
Physician Communication Note - Physician Communication Note Physician Communication Note: bradycardia, holding lopressor, multiple wounds antibiotics, postive UA
[2018-11-20 13:30] LABS: URINE BACTERIA SMALL /hpf; URINE RBC 0 - 2 /hpf (0-2)
--- NOTE | 2018-11-20 17:35 | CON ---
DATE: 11/20/2018 The patient is in bed in 264, bed 1. CHIEF COMPLAINT: Left foot infection times several days. HISTORY OF PRESENT ILLNESS: This is an 88-year-old female with history of diabetes mellitus, coronary artery disease, renal insufficiency in the past and cataract, atrial fibrillation, hypertension and asthma, who has had breast biopsy and appendectomy in the past, who is admitted with diagnosis of a foot infection. Infectious Disease consultation requested. REVIEW OF SYSTEMS: She is with low-grade fevers. No chills. No nausea or vomiting. No chest pain, shortness of breath, or cough. No hemoptysis. No abdominal pain or diarrhea. Review of systems of 12-point review systems was performed. PAST MEDICAL HISTORY: Significant for diabetes mellitus, coronary artery disease, peripheral artery disease, atrial fibrillation, hypertension and asthma. PAST SURGICAL HISTORY: Significant for breast biopsy, appendectomy. ALLERGIES: THE PATIENT HAS NO KNOWN ALLERGIES. MEDICATIONS: Medications at home are reviewed, include tramadol, Eliquis, metoprolol, Protonix, and enalapril. PHYSICAL EXAMINATION: GENERAL: The patient is in bed with no acute distress, answering questions appropriately although slowly. VITAL SIGNS: Temperature of 98, heart rate of 54, respiratory rate of 21, and blood pressure is 168/60. HEENT: Examination of HEENT is unremarkable. NECK: Supple. LUNGS: Have decreased breath sounds. HEART: Normal S1, S2. ABDOMEN: Soft, nontender. EXTREMITIES: Examination of foot with blister lesion and with erythema and edema. LABORATORY DATA: Laboratory examination reveals a white count of 13,900, hemoglobin of 13, and platelets of 224. Chemistries revealed a BUN of 16, creatinine of 0.7. C-reactive protein is 58 and the sed rate is 72. Urinalysis is noted. Microbiology reveals the foot cultures no growth and review of cultures from previous admission revealed the blood and urine cultures are negative in 2014 and 2013 respectively. The patient has had an x-ray of the foot, which is noted to be severe, diffuse bone demineralization. ASSESSMENT AND PLAN: This is an 88-year-old female with diabetes and coronary artery disease, peripheral artery disease, cataract, atrial fibrillation, hypertension, asthma with sepsis with left foot cellulitis in a diabetic, must rule out underlying osteomyelitis and peripheral arterial disease. We will order ABIs and MRI, and because of the patient's renal insufficiency in the past, we will discontinue the vancomycin and Zosyn. We will treat the patient with Teflaro at 600 mg IV every 12 hours pending culture results, imaging, and we will follow with you. Vikas Dhillon MD
[2018-11-20] MEDS: Ceftaroline 600 MG in Sodium Chloride 0.9% 100 ML IVPB SCH (17:59)
--- NOTE | 2018-11-20 19:46 | CARD ---
APPROVED REPORT Date of service: 11/19/2018 EKG Measurement Heart [id number] <Conclusion> Atrial fibrillation with slow ventricular response ST & T wave abnormality, consider anterolateral ischemia or digitalis effect Abnormal ECG
--- NOTE | 2018-11-20 20:15 | CARD ---
APPROVED REPORT Date of service: 11/19/2018 EKG Measurement Heart [id number] <Conclusion> Atrial fibrillation with slow ventricular response Septal infarct, age undetermined Nonspecific ST & T wave abnormality Abnormal ECG
--- NOTE | 2018-11-20 20:38 | CON ---
DATE: 11/20/2018 LOCATION: The patient is in room 264, bed 1. REASON FOR CONSULTATION: Atrial fibrillation, slow ventricular rate, coronary artery disease, hypertension, diabetes, obesity, blister and swelling on the legs. HISTORY OF PRESENT ILLNESS: This is an 88-year-old female, known case of coronary artery disease, history of stent insertion, also known atrial fibrillation, diabetes, hypertension, obesity, degenerative joint disease, admitted with ST since last several days, it is noted that she has a blister on the left heel area and also swelling of the leg on both side. The patient denies any chest pain, shortness of breath, or palpitation. The patient was found to have 3.1 second pause of atrial fibrillation. PAST MEDICAL HISTORY: Positive for coronary artery disease, history of stent insertion with non-ST segment elevation myocardial infarction in 08/2017. The patient with known hypertension, diabetes, chronic atrial fibrillation, degenerative joint disease, and hypercholesterolemia. The patient in the past was also treated for congestive heart failure. PAST SURGICAL HISTORY: Positive for excision of benign pulmonary nodule on the right lung. ALLERGIES: THE PATIENT DENIES ANY ALLERGIES. PERSONAL HISTORY: The patient denies smoking or drinking. MEDICATIONS: The patient's home medications included, Ecotrin 81 mg daily, Eliquis 2.5 mg two times a day, Lyrica 100 mg two times a day, Zocor 20 mg daily, Protonix 40 mg daily, enalapril 5 mg daily, glimepiride 4 mg daily, and tramadol 50 mg three times a day. PREVIOUS CARDIAC WORKUP AND HISTORY: The patient on 08/14/2017 was admitted with non-ST elevation myocardial infarction. The patient had catheterization and a stent put in RCA on 08/14/2017, then the patient had staged angioplasty and stent insertion on 09/11/2017 into mid LAD and proximal to mid circumflex. The patient's cardiac cath on 09/11/2017 showed patent stent in RCA which was done on 08/14/2017. At that time, successful PTCA with stent insertion into mid LAD and proximal to mid circumflex was done. The patient's ejection fraction was 55% to 60% and on pull back the patient had a minimal pressure radiant across aortic valve which was only 5 mmHg. The patient at that time also had right heart catheterization which showed RA pressure of 6 to 8, RV pressure was 51/10, PA pressure was 51/20, and main PA pressure was 27, PC wedge pressure was 10. The patient's recent echocardiogram was done on 09/24/2018; which showed left ventricular size is normal, [id number] concentric left ventricular hypertrophy. LV function was normal with EF of 65%. Right ventricle is moderately dilated, systolic function of RV was moderately reduced, [id number] valvular aortic stenosis, but on 09/11/2017, there was only gradient of 5 mm across the aortic valve when catheterization pull back. Mild mitral regurgitation, moderate tricuspid regurgitation with RVSP of 72 mmHg. While on right heart cath on 09/11/2017; RV and PA pressure was 51 mmHg, suggestive of moderate pulmonary hypertension. Trace to mild pulmonic mitral regurgitation. The patient's myocardial stress test on 07/25/2018; showed normal myocardial perfusion study with normal ejection fraction of 77% REVIEW OF SYSTEMS: All the systems reviewed, positives mentioned in the history, others were negative. PHYSICAL EXAMINATION: VITAL SIGNS: Blood pressure 155/63, respirations 19, pulse 54 and earlier pulses were 41; and the patient is afebrile. HEENT: Head is normocephalic. Eyes: Pupils are normal. Conjunctivae are normal. Nose and throat are normal. NECK: JVP low. Carotids equal. THORAX: AP diameter normal. LUNGS: Clear. CARDIOVASCULAR: S1 and S2. Systolic murmur grade 2/6. No rales. ABDOMEN: Protuberant. No organomegaly. EXTREMITIES: The patient has some edema on both legs and there is a blister which had incision and drainage done in the emergency room on the left heel area. LABORATORY DATA: WBC 13.9, hemoglobin 13.4, hematocrit 44.1, and platelets 224. Sodium 137, potassium 4.1, BUN 16, and creatinine 0.7. Total bilirubin 1.7, AST 42, and ALT 26. Troponin 0.01. NT-proBNP natriuretic peptide 7170. Chest x-ray has no abnormality found. EKG showed atrial fibrillation, slow ventricular rate with non-specific ST-T changes. cardiac monitor technician strip showed pause of 3.1 second. DIAGNOSES: Atrial fibrillation slow ventricular rate, coronary artery disease, history of stent insertion, recent stress test negative, pulmonary hypertension moderate with right heart dysfunction, hypertension, diabetes mellitus, obesity, arthritis, and history of stent insertion. PLAN: The patient took metoprolol yesterday before she came to the hospital, so we will see how much the metoprolol affect is there, the patient was not given any metoprolol today. Also, we will check TSH to elevate bradycardia. The patient is on Eliquis 2.5 mg two times a day, which she got this morning, but we will not give more anymore today because if she needs a pacemaker then we will have to stop that. In the meantime, the patient is continuing furosemide 40 mg IV daily, Lyrica 100 mg two times a day, Protonix 40 mg daily, tramadol 50 mg three times a day, vancomycin 1 g IV every 12 hours, and lisinopril 5 mg daily. We will continue Zocor 20 mg daily. The patient received Eliquis this morning, so we will hold on from now onward and reevaluate the cardiac status tomorrow and then we will decide whether the patient will need a pacemaker or not and we will closely follow with you. Tyrell Hobbs MD
[2018-11-21] MEDS: Pantoprazole 40 mg EC Tab PO SCH (05:46)
[2018-11-21 06:13] VITALS: RESP 18; O2SAT 100
[2018-11-21 07:14] LABS: BASO # 0.03 K/mm3 (0.0-2.0); BASO % 0.4 % (0.0-3.0); EOS # 0.1 (0.0-0.7); EOS % 0.6 % (1.5-5.0); GRAN # 5.41 (1.4-6.5); GRAN % 66.8 % (50.0-68.0); HEMOGLOBIN 12.9 g/dL (12.0-16.0); LYMPH # 1.6 (1.2-3.4); LYMPH % 19.5 % (22.0-35.0); MEAN CELL VOLUME 75.9 fl (80.0-105.0); MEAN CORPUSCULAR HEMOGLOBIN 23.2 pg (25.0-35.0); MEAN CORPUSCULAR HGB CONC 30.6 g/dl (31.0-37.0); MONO % 12.7 % (1.0-6.0); RBC 5.56 10^6/uL (3.5-6.1); RED CELL DISTRIBUTION WIDTH 17.9 % (11.5-14.5); WHITE BLOOD COUNT 8.1 10^3/uL (4.5-11.0)
[2018-11-21 07:28] LABS: ALB/GLOB RATIO 0.8 (1.1-1.8); ALBUMIN 2.9 g/dL (3.0-4.8); ALT/SGPT 25 U/L (7-56); AST/SGOT 38 U/L (14-36); BLOOD UREA NITROGEN 17 mg/dL (7-21); CALCIUM 8.4 mg/dL (8.4-10.5); GFR NON-AFRICAN AMERICAN > 60
--- NOTE | 2018-11-21 07:49 | CP.PCM.PN ---
Subjective - Date & Time of Evaluation Date of Evaluation: 11/21/18 Time of Evaluation: 06:25 - Subjective Subjective: Awake, no distress. lying in bed Reason for consultation and follow up: Cardiac evaluation of bradycardia Seen and examined by me and Dr. Hobbs Objective - Vital Signs/Intake and Output Vital Signs (last 24 hours): Temp Pulse Resp BP Pulse Ox 98.8 F 56 L 18 99/63 L 100 11/21/18 06:00 11/21/18 06:00 11/21/18 06:00 11/21/18 06:00 11/21/18 06:00 Intake and Output: 11/21/18 11/21/18 06:59 18:59 Intake Total 120 Output Total 300 Balance -180 - Medications Medications: Current Medications Apixaban (Eliquis) 2.5 mg PO BID [facility]; Protocol Atorvastatin Calcium (Lipitor) 10 mg PO DIN [facility] Last Admin: 11/20/18 17:55 Dose: 10 mg Furosemide (Lasix) 40 mg IVP DAILY [facility] Last Admin: 11/20/18 10:36 Dose: 40 mg Ceftaroline Fosamil 600 mg/ (Sodium Chloride) 100 mls @ 100 mls/hr IVPB Q12 [facility]; Protocol Stop: 11/29/18 17:16 Last Admin: 11/20/18 17:59 Dose: 100 mls/hr Insulin Human Regular (Humulin R Low) 0 units SC ACHS [facility]; Protocol Last Admin: 11/20/18 21:40 Dose: Not Given Lisinopril (Zestril) 5 mg PO DAILY [facility] Last Admin: 11/20/18 12:50 Dose: 5 mg Pantoprazole Sodium (Protonix Ec Tab) 40 mg PO 0600 [facility] Last Admin: 11/21/18 05:46 Dose: 40 mg Pregabalin (Lyrica) 100 mg PO BID [facility] Last Admin: 11/20/18 17:55 Dose: 100 mg Tramadol HCl (Ultram) 50 mg PO TID [facility] Last Admin: 11/20/18 17:59 Dose: 50 mg - Labs Labs: 11/21/18 07:00 11/21/18 07:00 PT 19.4 SECONDS (9.4-12.5) H 11/19/18 20:00 INR 1.67 11/19/18 20:00 APTT 35.1 Seconds (25.1-36.5) 11/19/18 20:00 - Constitutional Appears: Non-toxic, No Acute Distress - Head Exam Head Exam: NORMAL INSPECTION, NORMOCEPHALIC - Eye Exam Eye Exam: Normal appearance - ENT Exam ENT Exam: Mucous Membranes Dry - Respiratory Exam Respiratory Exam: Decreased Breath Sounds, NORMAL BREATHING PATTERN - Cardiovascular Exam Cardiovascular Exam: Irregular Rhythm, +S1, +S2 Additional comments: Telemetry atrial fib 50's - GI/Abdominal Exam GI & Abdominal Exam: Soft, Normal Bowel Sounds - Neurological Exam Neurological Exam: Alert, Awake - Psychiatric Exam Psychiatric exam: Normal Affect, Normal Mood - Skin Skin Exam: Dry, Normal Color, Warm Assessment and Plan - Assessment and Plan (Free Text) Assessment: A 88 year old female obese, who came in to the ER due to left foot blister and heel swelling. History of hypertension, hyperlipidemia, diabetes, chronic atrial fibrillation on Eliquis,degenerative joint disease, excision of benign right lung nodule, congestive heart failure, coronary artery disease post stents 08/2017 (non STEMI). Admitted for left foot blister. Slow rate atrial fibrillation , 30's to 40's with 3.1 seconds pause. patient was on betablocker (Lopressor).Held Lopressor. Plan: No distress, denies chest pain Telemetry shows atrial fibrillation, 54/min to 80's per min Continue to hold Lopressor Heart rate improved off Lopressor Blood pressure controlled Continue current management Continue current treatment If continues to improve heart rate, will restart Eliquis tomorrow Continue antibiotics as ordered By [facility] Pod[facility]ry on consult Will follow up Plan and treatment discussed with Dr. Hobbs
--- NOTE | 2018-11-21 10:07 | CP.PCM.PN ---
Subjective - Date & Time of Evaluation Date of Evaluation: 11/21/18 Time of Evaluation: 10:03 - Subjective Subjective: Podiatry progress note for Dr. Johnson, 88 y/o female, pmhx including htn/hld/dm/a.fibb on eliquis, nkda with left foot heel blood filled blister. Pt. is here with the daughter, stated that they noticed a blister and heel swelling about 3 days ago, no fever or chills. Denies acute overnight events. Objective - Vital Signs/Intake and Output Vital Signs (last 24 hours): Temp Pulse Resp BP Pulse Ox 98.8 F 56 L 18 99/63 L 100 11/21/18 06:00 11/21/18 06:00 11/21/18 06:00 11/21/18 06:00 11/21/18 06:00 Intake and Output: 11/21/18 11/21/18 06:59 18:59 Intake Total 120 Output Total 300 Balance -180 - Medications Medications: Current Medications Apixaban (Eliquis) 2.5 mg PO BID [facility]; Protocol Atorvastatin Calcium (Lipitor) 10 mg PO DIN [facility] Last Admin: 11/20/18 17:55 Dose: 10 mg Furosemide (Lasix) 40 mg IVP DAILY [facility] Last Admin: 11/20/18 10:36 Dose: 40 mg Ceftaroline Fosamil 600 mg/ (Sodium Chloride) 100 mls @ 100 mls/hr IVPB Q12 [facility]; Protocol Stop: 11/29/18 17:16 Last Admin: 11/20/18 17:59 Dose: 100 mls/hr Insulin Human Regular (Humulin R Low) 0 units SC ACHS [facility]; Protocol Last Admin: 11/20/18 21:40 Dose: Not Given Lisinopril (Zestril) 5 mg PO DAILY [facility] Last Admin: 11/20/18 12:50 Dose: 5 mg Pantoprazole Sodium (Protonix Ec Tab) 40 mg PO 0600 [facility] Last Admin: 11/21/18 05:46 Dose: 40 mg Pregabalin (Lyrica) 100 mg PO BID [facility] Last Admin: 11/20/18 17:55 Dose: 100 mg Tramadol HCl (Ultram) 50 mg PO TID [facility] Last Admin: 11/20/18 17:59 Dose: 50 mg - Labs Labs: 11/21/18 07:00 11/21/18 07:00 PT 19.4 SECONDS (9.4-12.5) H 11/19/18 20:00 INR 1.67 11/19/18 20:00 APTT 35.1 Seconds (25.1-36.5) 11/19/18 20:00 - Constitutional Appears: Well, Non-toxic, No Acute Distress - Head Exam Head Exam: ATRAUMATIC, NORMOCEPHALIC - Eye Exam Eye Exam: Normal appearance - ENT Exam ENT Exam: Mucous Membranes Moist - Neck Exam Neck Exam: Normal Inspection - Extremities Exam Additional comments: Bilateral lower extremity exam: Vascular: DP/PT nonpalpable secondary to pitting edema, CFT <3 secs x 10, TG warm to warm, no erythema noted in the left heel, increased edema noted in the left heel Derm: no open lesions, blood filled blister noted at the plantar and posterior aspect of the left heel, no active drainage, no erythema noted tiny blister, edema noted surround the blister ortho: pain on palpation to the blood filled blister neuro: protective sensation intact via arcadia 4/4 b/l Assessment and Plan - Assessment and Plan (Free Text) Assessment: 88 yo female seen and evaluated for left heel blister Plan: Patient seen and evaluated Chart, labs and vitals reviewed; WBC 13.9 Cultures taken and ordered. Left foot x-rays reviewed; no osseous erosions noted. Left foot dressed with optifoam; no clinical signs of infection Podiatry will continue to follow the patient; stable for discharge from podiatry point of view
[2018-11-21] MEDS: Insulin Reg-LOW-Coverage SC SCH ×4 (10:13→22:05)
[2018-11-21] MEDS: Ceftaroline 600 MG in Sodium Chloride 0.9% 100 ML IVPB SCH ×2 (10:14→22:05)
--- NOTE | 2018-11-21 10:38 | PN ---
DATE: 11/21/2018 SUBJECTIVE: The patient is in bed, in no acute distress, nontoxic. PHYSICAL EXAMINATION: VITAL SIGNS: Temperature is 98, blood pressure is 99/60, respiratory rate of 18. HEENT: Unremarkable. NECK: Supple. LUNGS: Have decreased breath sounds. HEART: Normal, S1, S2. ABDOMEN: Soft, nontender. LABORATORY DATA: Examination reveals a white count of 8.1, hemoglobin of 12, platelets of 229. Chemistries reveal a BUN of 17, creatinine of 0.6. Procalcitonin is 0.33. Urinalysis is noted and microbiology reveals the blood cultures are negative. Left foot cultures are negative. MEDICATIONS: Review of orders reveals the patient to be on ceftaroline. ASSESSMENT AND PLAN: An 88-year-old female with history of diabetes mellitus, coronary artery disease, renal insufficiency, cataract, atrial fibrillation, hypertension, asthma, breast biopsy, appendectomy, who is admitted with a foot with sepsis. Sepsis and left foot cellulitis in a diabetic, must rule out underlying osteomyelitis versus progression of peripheral arterial disease. Workup in progress. Day #2 of Teflaro. We will check on the cultures and imaging. Further workup as per Vascular and Podiatry. Vikas Dhillon MD
--- NOTE | 2018-11-21 11:09 | CP.PCM.PN ---
Subjective - Date & Time of Evaluation Date of Evaluation: 11/21/18 Time of Evaluation: 09:30 - Subjective Subjective: resting comfortably, NAD, denies chest pain, no SOB Objective - Vital Signs/Intake and Output Vital Signs (last 24 hours): Temp Pulse Resp BP Pulse Ox 98.8 F 72 18 134/68 100 11/21/18 06:00 11/21/18 10:15 11/21/18 06:00 11/21/18 10:15 11/21/18 06:00 Intake and Output: 11/21/18 11/21/18 06:59 18:59 Intake Total 120 Output Total 300 Balance -180 - Medications Medications: Current Medications Apixaban (Eliquis) 2.5 mg PO BID [facility]; Protocol Atorvastatin Calcium (Lipitor) 10 mg PO DIN [facility] Last Admin: 11/20/18 17:55 Dose: 10 mg Furosemide (Lasix) 40 mg IVP DAILY [facility] Last Admin: 11/21/18 10:08 Dose: 40 mg Ceftaroline Fosamil 600 mg/ (Sodium Chloride) 100 mls @ 100 mls/hr IVPB Q12 [facility]; Protocol Stop: 11/29/18 17:16 Last Admin: 11/21/18 10:14 Dose: 100 mls/hr Insulin Human Regular (Humulin R Low) 0 units SC ACHS [facility]; Protocol Last Admin: 11/21/18 10:13 Dose: Not Given Lisinopril (Zestril) 5 mg PO DAILY [facility] Last Admin: 11/21/18 10:15 Dose: 5 mg Pantoprazole Sodium (Protonix Ec Tab) 40 mg PO 0600 [facility] Last Admin: 11/21/18 05:46 Dose: 40 mg Pregabalin (Lyrica) 100 mg PO BID [facility] Last Admin: 11/21/18 10:14 Dose: 100 mg Tramadol HCl (Ultram) 50 mg PO TID [facility] Last Admin: 11/21/18 10:15 Dose: 50 mg - Labs Labs: 11/21/18 07:00 11/21/18 07:00 PT 19.4 SECONDS (9.4-12.5) H 11/19/18 20:00 INR 1.67 11/19/18 20:00 APTT 35.1 Seconds (25.1-36.5) 11/19/18 20:00 - Respiratory Exam Respiratory Exam: Rales - Cardiovascular Exam Cardiovascular Exam: REGULAR RHYTHM, Murmur - GI/Abdominal Exam GI & Abdominal Exam: Soft, Normal Bowel Sounds - Extremities Exam Extremities Exam: Pedal Edema - Neurological Exam Neurological Exam: Alert, Awake Assessment and Plan (1) Atrial fibrillation Status: Chronic (2) Blister of foot Status: Acute (3) Cellulitis Status: Acute (4) Pedal edema Status: Chronic (5) Type II diabetes mellitus Status: Chronic (6) Hypertension Status: Chronic (7) Immobility Status: Acute (8) Congestive heart failure (CHF) Status: Chronic - Assessment and Plan (Free Text) Plan: continue IV Abx/wound care, cardiology/ID follow-up, PT & SW for DC planning
--- NOTE | 2018-11-21 12:58 | CP.PCM.PCO ---
Physician Communication Note - Physician Communication Note Physician Communication Note: r/o PAD, osteo, ?pacemaker secondary to pauses, 2nd wound cult pending
--- NOTE | 2018-11-21 13:17 | MRI ---
Date of service: 11/21/2018 PROCEDURE: MRI of the left foot without contrast HISTORY: r/o osteomyelitis COMPARISON: TECHNIQUE: MRI of the left foot was performed in multiple planes using multiple pulse sequences. FINDINGS: There is soft tissue edema over the dorsum of the foot. There is no marrow edema within the toes or metatarsals to suggest osteomyelitis. IMPRESSION: No evidence of osteomyelitis
--- NOTE | 2018-11-21 13:19 | MRI ---
Date of service: 11/21/2018 PROCEDURE: MRI of the left ankle without contrast HISTORY: R/O osteomyelitis COMPARISON: TECHNIQUE: MRI of the left ankle was performed in multiple planes using multiple pulse sequences. FINDINGS: There is subcutaneous edema anterior to the ankle and over the dorsum of the foot. There is also some edema surrounding the ankle. There is no marrow edema to suggest osteomyelitis or fracture. The Achilles tendon is normal. The medial and lateral ankle tendons and ligaments are unremarkable. IMPRESSION: No evidence of osteomyelitis
--- NOTE | 2018-11-21 14:33 | US ---
PROCEDURE: Lower extremity JERILYN exam HISTORY: Peripheral vascular disease with pain and ulceration. Diabetes. PHYSICIAN(S): Adam Kurtz MD. FINDINGS: The resting JERILYN's are normal: right, 1.26and left, 1.01. The brachial systolic pressures are symmetric. The PVR waveforms are somewhat limited by artifact The low thigh pressures and waveforms are relatively normal. The calf PVR waveforms augment normally. No significant gradients are noted across the thighs. The ankle and metatarsal waveforms are relatively normal and symmetric. No significant pressure gradients are noted across the lower legs. IMPRESSION: 1. Relatively normal JERILYN and PVR examination at rest.
[2018-11-22] MEDS: Pantoprazole 40 mg EC Tab PO SCH (06:25)
--- NOTE | 2018-11-22 07:59 | CP.PCM.PN ---
Subjective - Date & Time of Evaluation Date of Evaluation: 11/22/18 Time of Evaluation: 06:40 - Subjective Subjective: Awake, no distress. lying in bed, Reason for consultation and follow up: Cardiac evaluation of bradycardia, 3.1 seconds pause, on Metropolol, History of hypertension, hyperlipidemia, diabetes, chronic atrial fibrillation on Eliquis, Seen and examined by me and Dr. Cloud Objective - Vital Signs/Intake and Output Vital Signs (last 24 hours): Temp Pulse Resp BP Pulse Ox 98.4 F 64 18 168/80 H 100 11/22/18 06:00 11/22/18 06:00 11/22/18 06:00 11/22/18 06:00 11/22/18 06:00 Intake and Output: 11/22/18 11/22/18 06:59 18:59 Intake Total 940 Output Total 150 Balance 790 - Medications Medications: Current Medications Apixaban (Eliquis) 2.5 mg PO BID [facility]; Protocol Atorvastatin Calcium (Lipitor) 10 mg PO DIN [facility] Last Admin: 11/21/18 17:43 Dose: 10 mg Furosemide (Lasix) 40 mg IVP DAILY [facility] Last Admin: 11/21/18 10:08 Dose: 40 mg Ceftaroline Fosamil 600 mg/ (Sodium Chloride) 100 mls @ 100 mls/hr IVPB Q12 [facility]; Protocol Stop: 11/29/18 17:16 Last Admin: 11/21/18 22:05 Dose: 100 mls/hr Insulin Human Regular (Humulin R Low) 0 units SC ACHS [facility]; Protocol Last Admin: 11/21/18 22:05 Dose: Not Given Lisinopril (Zestril) 5 mg PO DAILY [facility] Last Admin: 11/21/18 10:15 Dose: 5 mg Pantoprazole Sodium (Protonix Ec Tab) 40 mg PO 0600 [facility] Last Admin: 11/22/18 06:25 Dose: 40 mg Pregabalin (Lyrica) 100 mg PO BID [facility] Last Admin: 11/21/18 17:43 Dose: 100 mg Tramadol HCl (Ultram) 50 mg PO TID [facility] Last Admin: 11/21/18 17:48 Dose: 50 mg - Labs Labs: 11/21/18 07:00 11/21/18 07:00 PT 19.4 SECONDS (9.4-12.5) H 11/19/18 20:00 INR 1.67 11/19/18 20:00 APTT 35.1 Seconds (25.1-36.5) 11/19/18 20:00 - Constitutional Appears: Non-toxic, No Acute Distress - Head Exam Head Exam: NORMAL INSPECTION, NORMOCEPHALIC - Eye Exam Eye Exam: Normal appearance Pupil Exam: NORMAL ACCOMODATION - ENT Exam ENT Exam: Mucous Membranes Moist - Respiratory Exam Respiratory Exam: Decreased Breath Sounds, Clear to Ausculation Bilateral, NORMAL BREATHING PATTERN - Cardiovascular Exam Cardiovascular Exam: Irregular Rhythm, +S1, +S2 Additional comments: Telemetry - GI/Abdominal Exam GI & Abdominal Exam: Soft, Normal Bowel Sounds - Neurological Exam Neurological Exam: Alert, Awake, Oriented x3 - Psychiatric Exam Psychiatric exam: Normal Affect, Normal Mood - Skin Skin Exam: Dry, Normal Color, Warm Assessment and Plan - Assessment and Plan (Free Text) Assessment: A 88 year old female obese, who came in to the ER due to left foot blister and heel swelling. History of hypertension, hyperlipidemia, diabetes, chronic atrial fibrillation on Eliquis,degenerative joint disease, excision of benign right lung nodule, congestive heart failure, coronary artery disease post stents 08/2017 (non STEMI). Admitted for left foot blister. Slow rate atrial fibrillation , 30's to 40's with 3.1 seconds pause. patient was on betablocker (Lopressor).Held Lopressor. Heart rate improved to atrial fibrillation 60's/min. No need for pacemaker insertion. Left foot and ankle MRI negative for oeteomyelitis. Preliminary wound culture negative growth. Plan: No distress, denies chest pain Improved heart rate after holding off on Lopressor. Telemetry shows atrial fibrillation, 50-60's per minute Continue to hold Lopressor No need for pacemaker at this time On Lipitor 10 mg daily, Lasix 40 mg daily,Lisinopril 5 mg daily Will increase Lisinopril to 10 mg daily to control blood pressure Continue current management Continue current treatment Will restart Eliquis today Continue antibiotics as ordered By [facility] Podiatry on consult Will follow up Plan and treatment discussed with Dr. Cloud
[2018-11-22] MEDS: Insulin Reg-LOW-Coverage SC SCH ×2 (08:30→13:27)
--- NOTE | 2018-11-22 08:54 | PN ---
DATE: 11/21/2018 LOCATION: The patient is in room 264, bed 1. Millie Reyez APN already wrote a detailed note, this is an additional note. The patient was admitted with blister on the heel with incision and drainage done in the emergency room and oozing the fluid. The patient found to have atrial fibrillation with slow ventricular rate, but the patient taken Lopressor at home. The patient is a known case of coronary artery disease, history of stent insertion, hypertension, diabetes, obesity and swelling of legs. Now, the patient is feeling better. Denies chest pain, shortness of breath, or palpitation. The patient has been monitored. Last 3 seconds pause was seen at midnight last night and since then patient's heart rate has been stable, so we are going to monitor today and if the patient does not get any long pauses and we will keep her off Lopressor and put her back on her Eliquis, right now Eliquis because if she needs a pacemaker, then we have to plan for the pacemaker insertion, so we will continue to monitor closely and depending on the monitor finding, we will decide about pacemaker. In the meantime, we will continue present therapy. We will follow with you. Tyrell Hobbs MD
[2018-11-22] MEDS: Ceftaroline 600 MG in Sodium Chloride 0.9% 100 ML IVPB SCH (10:08)
[2018-11-22] MEDS ORDERED: Amoxicillin-Clav 875-125 mg Tab PO SCH (11:45)
--- NOTE | 2018-11-22 11:45 | CP.PCM.PN ---
Subjective - Date & Time of Evaluation Date of Evaluation: 11/22/18 Time of Evaluation: 09:15 - Subjective Subjective: resting comfortably, NAD, denies chest pain, no SOB Objective - Vital Signs/Intake and Output Vital Signs (last 24 hours): Temp Pulse Resp BP Pulse Ox 98.4 F 76 18 143/69 100 11/22/18 06:00 11/22/18 10:08 11/22/18 06:00 11/22/18 10:09 11/22/18 06:00 Intake and Output: 11/22/18 11/22/18 06:59 18:59 Intake Total 940 Output Total 150 Balance 790 - Medications Medications: Current Medications Amoxicillin/Clavulanate Potassium (Augmentin 875 Mg-125 Mg Tab) 1 tab PO Q12 [facility]; Protocol Stop: 11/27/18 11:46 Apixaban (Eliquis) 5 mg PO BID [facility]; Protocol Atorvastatin Calcium (Lipitor) 10 mg PO DIN [facility] Last Admin: 11/21/18 17:43 Dose: 10 mg Doxycycline Hyclate (Doryx) 100 mg PO Q12 [facility]; Protocol Stop: 11/27/18 11:46 Furosemide (Lasix) 40 mg IVP DAILY [facility] Last Admin: 11/22/18 10:09 Dose: 40 mg Ceftaroline Fosamil 600 mg/ (Sodium Chloride) 100 mls @ 100 mls/hr IVPB Q12 [facility]; Protocol Stop: 11/29/18 17:16 Last Admin: 11/22/18 10:08 Dose: 100 mls/hr Insulin Human Regular (Humulin R Low) 0 units SC ACHS [facility]; Protocol Last Admin: 11/22/18 08:30 Dose: Not Given Lisinopril (Zestril) 10 mg PO DAILY [facility] Last Admin: 11/22/18 10:08 Dose: 10 mg Pantoprazole Sodium (Protonix Ec Tab) 40 mg PO 0600 [facility] Last Admin: 11/22/18 06:25 Dose: 40 mg Pregabalin (Lyrica) 100 mg PO BID [facility] Last Admin: 11/22/18 10:08 Dose: 100 mg Tramadol HCl (Ultram) 50 mg PO TID [facility] Last Admin: 11/22/18 10:07 Dose: 50 mg - Labs Labs: 11/21/18 07:00 11/21/18 07:00 PT 19.4 SECONDS (9.4-12.5) H 11/19/18 20:00 INR 1.67 11/19/18 20:00 APTT 35.1 Seconds (25.1-36.5) 11/19/18 20:00 - Respiratory Exam Respiratory Exam: Rales, NORMAL BREATHING PATTERN - Cardiovascular Exam Cardiovascular Exam: REGULAR RHYTHM - GI/Abdominal Exam GI & Abdominal Exam: Soft, Normal Bowel Sounds - Extremities Exam Extremities Exam: Pedal Edema - Neurological Exam Neurological Exam: Abnormal Gait, Alert, Awake - Skin Skin Exam: Dry, Warm Assessment and Plan (1) Atrial fibrillation Status: Chronic (2) Blister of foot Status: Acute (3) Cellulitis Status: Acute (4) Pedal edema Status: Chronic (5) Type II diabetes mellitus Status: Chronic (6) Hypertension Status: Chronic (7) Immobility Status: Acute (8) Congestive heart failure (CHF) Status: Chronic - Assessment and Plan (Free Text) Plan: continue wound care/IV abx/ID and Cardiology follow-up/PT & SW for DC planning
[2018-11-22 12:21] VITALS: BP 136/53; PULSE 70; TEMP 98.7
--- NOTE | 2018-11-22 14:17 | PN ---
DATE: 11/22/2018 LOCATION: The patient is in room 264, bed 1. Detailed note has been already written by Millie Reyez, this is an additional note. SUBJECTIVE: The patient was admitted with blister and drainage on the heel of the foot, found to have swelling on the legs and was found to have atrial fibrillation with slow rate with pauses up to 3.4 seconds with atrial fibrillation, but the patient was asymptomatic from cardiac point of view. The patient took Lopressor at home, so the patient's Lopressor was put on hold and since yesterday, the patient's heart rate has been stable without any episodes of bradycardia, so we were holding her Eliquis in preparation that in case she need a pacemaker, but now we are going to restart Eliquis because holding the Lopressor helped bradycardia and the patient is no more bradycardic. So, we will start her on Eliquis 5 mg b.i.d. The patient is getting antibiotics. She has some swelling on the legs for which she is getting Lasix 40 IV daily and the patient has a history of coronary artery disease and had stents put in before. We will continue to follow closely. Tyrell Hobbs MD
[2018-11-22] MEDS ORDERED: Pneumococcal 23-Valent Vaccine IM ONE (15:28)
[2018-11-22] MEDS ORDERED: Influenza Vaccine 60 mcg/0.5 mL SYR (4YR UP) IM ONE (15:28)
--- NOTE | 2018-11-22 15:52 | PN ---
DATE: 11/22/2018 SUBJECTIVE: The patient is in bed, in no acute distress, nontoxic. PHYSICAL EXAMINATION: VITAL SIGNS: Temperature is 98, blood pressure is 140/60, respiratory rate of 18. HEENT: Unremarkable. NECK: Supple. LUNGS: Decreased breath sounds. HEART: Normal S1, S2. ABDOMEN: Soft. LABORATORY DATA: Examination reveals a white count of 8.1, hemoglobin of 12. Chemistries are noted. Urinalysis is reviewed. Microbiology reveals the blood cultures are negative. The left foot culture, there is no growth. Urine culture is negative. Review of orders reveals the patient to be on ceftaroline. MRI shows no evidence of osteomyelitis, and ankle MRI no evidence of osteomyelitis. ASSESSMENT AND PLAN: This is an 88-year-old female with sepsis, with a left foot cellulitis and diabetic with negative MRI. Today is day #3 of Teflaro. We will switch to p.o. Augmentin and p.o. doxycycline for 5 days. Vikas Dhillon MD
--- NOTE | 2018-11-22 16:16 | PN ---
DATE: 11/22/2018 REASON FOR CONSULTATION: Followup, atrial fibrillation, slow ventricular rate, coronary artery disease, status post PTCA, hypertension, diabetes, blister, and swelling of the legs. SUBJECTIVE: The patient denied any chest pain, shortness of breath, or any palpitation. PHYSICAL EXAMINATION: VITAL SIGNS: Temperature afebrile, heart rate 76, blood pressure 143/60. HEENT: PERRLA. Extraocular muscles intact. NECK: Supple. No carotid bruit or thyromegaly. CHEST: Clear to auscultation. HEART: S1 and S2, regular. ABDOMEN: Soft. EXTREMITIES: Clubbing and cyanosis are negative. LABORATORY: Reviewed. Lowest heart rate have been 47 to 58, pause was 2.2 seconds. The patient has been asymptomatic. Blood workup as follows. WBC 8.1, hemoglobin 12.9, hematocrit 42.2, platelet count 229. Chemistry shows sodium 130, potassium 4.3, chloride 99, carbon dioxide 35, anion gap of 8, BUN 17, creatinine 0.6. IMPRESSION: An 88-year-old female with a past medical history significant for chronic atrial fibrillation, on Eliquis; hypertension; hyperlipidemia; coronary artery disease, status post percutaneous transluminal coronary angioplasty of right coronary artery on 08/14/2017 and staging this artery, stent placement of LAD on 09/11/2017 into the mid left anterior descending and circumflex. Admitted at this time with blisters of leg, found to be blisters in the leg and atrial fibrillation with slow ventricular rate. The patient was on beta-gonzalo. This was then held as the heart rate came up. She does not need any pacemaker now. RECOMMENDATIONS: We will resume back Eliquis, currently to hold metoprolol, give the benefit of doubt for the next 24 hours. AFib is stable, possible discharge home. I doubt that the patient may need the pacemaker and we will follow with you and keep an eye on telemetry monitoring. We will repeat EKG in the morning. So far the patient does not need pacemaker. History of hypertension, history of atrial fibrillation, degenerative joint disease. This note is in addition dictated by nurse practitioner, Millie Reyez. Thank you Dr. See, for providing us the opportunity in taking care of the patient, Brooke Wang. We will follow with you. Tyrell Cloud MD [facility] # [id number]
--- NOTE | 2018-11-23 14:59 | PQF ---
PROVIDER RESPONSE TEXT: Patient with history of mild intermittent asthma, presently asymptomatic REVIEWER QUERY TEXT: Asthma Specificity and Type Asthma is documented in the Medical Record. Please specify the type and severity of asthma and indic ate if this is associated with exacerbation or status asthmaticus. Such as: -- Mild intermittent -- Mild persistent -- Moderate persistent -- Severe persistent -- Exercise induced bronchospasm -- Cough variant asthma -- Other, please specify The patient's Clinical Indicators include: Please see query. Thank you. Query created by: Yessica Waggoner on 11/23/2018 1:17 PM Electronically signed by: Adam See MD 11/23/2018 2:57 PM
--- NOTE | 2018-11-23 14:59 | PQF ---
PROVIDER RESPONSE TEXT: Provider was unable to determine a response for this query. REVIEWER QUERY TEXT: Documentation Clarification The patient's Clinical Indicators include: Query created by: Yessica Waggoner on 11/23/2018 1:23 PM Electronically signed by: Adam See MD 11/23/2018 2:57 PM
== END 2018-11-22 17:29 | disposition home health service (06) | DRG 872 ==
LOC: ED 15:49 → ERH 21:31 → 2RNO 23:09 → OBSVTOIN 11-20 17:14
PROVIDERS: ADMIT Internal Medicine; ATTEND Internal Medicine
PROC: 3E0234Z Introduction of Serum, Toxoid and Vaccine into Muscle, Percutaneous Approach (ICD-10-PCS; principal; 2018-11-22)
DX: A41.9 Sepsis, unspecified organism (principal); L03.116 Cellulitis of left lower limb; S80.822A Blister (nonthermal), left lower leg, initial encounter; S90.822A Blister (nonthermal), left foot, initial encounter; E78.00 Pure hypercholesterolemia, unspecified; E78.5 Hyperlipidemia, unspecified; E66.9 Obesity, unspecified; H40.9 Unspecified glaucoma; I11.0 Hypertensive heart disease with heart failure; I25.10 Atherosclerotic heart disease of native coronary artery without angina pectoris; I25.2 Old myocardial infarction; I27.20 Pulmonary hypertension, unspecified; I48.2 Chronic atrial fibrillation; I50.9 Heart failure, unspecified; M19.90 Unspecified osteoarthritis, unspecified site; Z79.1 Long term (current) use of non-steroidal anti-inflammatories (NSAID); Z90.49 Acquired absence of other specified parts of digestive tract; J45.20 Mild intermittent asthma, uncomplicated; Z95.5 Presence of coronary angioplasty implant and graft; E11.36 Type 2 diabetes mellitus with diabetic cataract; E11.51 Type 2 diabetes mellitus with diabetic peripheral angiopathy without gangrene; I08.1 Rheumatic disorders of both mitral and tricuspid valves; Z23 Encounter for immunization